=== PATIENT | female | born 1970 | race Caucasian/White ===

== ENCOUNTER 2017-07-14 06:39 | Day surgery (SDC) | payer BC ==
[~2017-07-14 06:39] MED LIST: Lactated Ringers 1,000 ML IV SCH; Scopolamine 1.5 MG Transdermal Patch TOP ONE; Sodium Chloride 0.9% 10 ML Syringe FLUSH PRN; Sodium Chloride 0.9% 2.5 ML Syringe FLUSH PRN; ceFAZolin 2 GM in Premix Bag 1 BAG IV ONE
[2017-07-14] MEDS ORDERED: Midazolam 1 MG/ML 2 ML SDV ONE (07:08)
[2017-07-14] MEDS ORDERED: Propofol 200 MG/20 ML SDV ONE (07:08)
[2017-07-14] MEDS ORDERED: fentaNYL 100 MCG/2 ML SDV ONE (07:08)
[2017-07-14] MEDS ORDERED: Ketorolac 30 MG/ML SDV ONE (07:11)
[2017-07-14] MEDS ORDERED: Neostigmine Methylsulfate 1 MG/ML 5 ML Syringe ONE (07:11)
[2017-07-14] MEDS ORDERED: Ondansetron 4 MG/2 ML SDV ONE (07:11)
[2017-07-14] MEDS ORDERED: Rocuronium 10 MG/ML 10 ML Syringe ONE (07:11)
[2017-07-14] MEDS ORDERED: Lidocaine 2% 5 ML SDV ONE (07:11)
[2017-07-14] MEDS ORDERED: diphenhydrAMINE 50 MG/ML SDV ONE (07:11)
[2017-07-14] MEDS ORDERED: ceFAZolin 1 GM Vial ONE (07:13)
[2017-07-14] MEDS ORDERED: Bupivacaine 0.5% 30 ML SDV ONE (07:20)
--- NOTE | 2017-07-14 07:30 | PCM.PREANE ---
Preanesthetic Assessment - Anesthesia/Transfusion/Family Hx Anesthesia History: Prior Anesthesia Without Reaction Family History of Anesthesia Reaction: No Transfusion History: No Prior Transfusion(s) Intubation History: Unknown - Review of Systems General: No Symptoms Pulmonary: No Symptoms Cardiovascular: No Symptoms Gastrointestinal: No Symptoms Neurological: No Symptoms Other: Reports: None - Physical Assessment NPO Status Date: 07/13/17 NPO Status Time: 21:00 O2 Sat by Pulse Oximetry: 96 Respiratory Rate: 12 Vital Signs: Last Vital Signs Temp 36.7 C 07/14/17 06:45 Pulse 84 07/14/17 06:45 Resp 12 07/14/17 06:45 BP 117/78 07/14/17 06:45 Pulse Ox 96 07/14/17 06:45 Height: 1.75 m Weight: 88.904 kg ASA Class: 1 Mental Status: Alert & Oriented x3 Airway Class: Mallampati = 2 Dentition: Reports: Normal Dentition Thyro-Mental Finger Breadths: 3 Mouth Opening Finger Breadths: 3 ROM/Head Extension: Full Lungs: Clear to Auscultation, Normal Respiratory Effort Cardiovascular: Regular Rate, Regular Rhythm - Allergies Allergies/Adverse Reactions: Allergies Allergy/AdvReac Type Severity Reaction Status Date / Time No Known Allergies Allergy Verified 04/09/16 15:05 - Blood Blood Available: No - Anesthesia Plan Pre-Op Medication Ordered: None - Acknowledgements Anesthesia Type Planned: General Anesthesia Pt an Appropriate Candidate for the Planned Anesthesia: Yes Alternatives and Risks of Anesthesia Discussed w Pt/Guardian: Yes Pt/Guardian Understands and Agrees with Anesthesia Plan: Yes PreAnesthesia Questionnaire HEENT History: Reports: None Cardiovascular History: Reports: Other (See Below) Other Respiratory History: Former smoker smoked a few cigarettes daily for 8 years, QUIT 2 yrs ago Gastrointestinal History: Reports: Cholelithiasis Other Gastrointestinal History: Heartburn on occasion treat with Pepcid Genitourinary History: Reports: None 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 [No Known Home Meds] 07/08/17 [History] - CURRENT (IN HOUSE) MEDS Current Meds: Current Medications Lactated Ringer's (Ringers, Lactated) 1,000 mls @ 125 mls/hr IV ASDIRECTED HUGO Last Admin: 07/14/17 07:09 Dose: 125 mls/hr Sodium Chloride (Saline Flush) 10 ml FLUSH ASDIRECTED PRN PRN Reason: Keep Vein Open Sodium Chloride (Saline Flush) 2.5 ml FLUSH ASDIRECTED PRN PRN Reason: Keep Vein Open Discontinued Medications Bupivacaine HCl (Marcaine 0.5%) Confirm Administered Dose 30 ml .ROUTE .STK-MED ONE Stop: 07/14/17 07:21 Cefazolin Sodium (Ancef) Confirm Administered Dose 2 gm .ROUTE .STK-MED ONE Stop: 07/14/17 07:14 Diphenhydramine HCl (Benadryl) Confirm Administered Dose 50 mg .ROUTE .STK-MED ONE Stop: 07/14/17 07:12 Fentanyl (Sublimaze) Confirm Administered Dose 100 mcg .ROUTE .STK-MED ONE Stop: 07/14/17 07:09 Glycopyrrolate () Confirm Administered Dose 1 mg .ROUTE .STK-MED ONE Stop: 07/14/17 07:12 Cefazolin Sodium/Dextrose 2 gm (/ Premix) 50 mls @ 100 mls/hr IV ONETIME ONE Stop: 07/13/17 10:00 Ketorolac Tromethamine (Toradol) Confirm Administered Dose 30 mg .ROUTE .STK- MED ONE Stop: 07/14/17 07:12 Lidocaine (Xylocaine-Mpf 2%) Confirm Administered Dose 5 ml .ROUTE .STK-MED ONE Stop: 07/14/17 07:12 Midazolam HCl (Versed 1 Mg/Ml) Confirm Administered Dose 2 mg .ROUTE .STK-MED ONE Stop: 07/14/17 07:09 Neostigmine Methylsulfate (Neostigmine) Confirm Administered Dose 5 mg .ROUTE .STK-MED ONE Stop: 07/14/17 07:12 Ondansetron HCl (Zofran) Confirm Administered Dose 4 mg .ROUTE .STK-MED ONE Stop: 07/14/17 07:12 Propofol (Diprivan 20 Ml) Confirm Administered Dose 200 mg .ROUTE .STK-MED ONE Stop: 07/14/17 07:09 Rocuronium Brogue (Zemuron) Confirm Administered Dose 100 mg .ROUTE .STK-MED ONE Stop: 07/14/17 07:12 Scopolamine (Transderm-Scop) 1.5 mg TOP ONETIME ONE Stop: 07/14/17 06:31 Last Admin: 07/14/17 07:09 Dose: 1.5 mg
[2017-07-14] MEDS ORDERED: fentaNYL 100 MCG/2 ML SDV IVPUSH PRN (07:37)
[2017-07-14] MEDS ORDERED: HYDROmorphone 2 MG/ML Syringe ONE (08:03)
[2017-07-14] MEDS ORDERED: Phenylephrine/Normal Saline 100 MCG/ML 10 ML Syringe ONE (08:15)
[2017-07-14] MEDS ORDERED: ePHEDrine 50 MG/ML SDV ONE (08:25)
[2017-07-14] MEDS ORDERED: Mineral Oil/Petrolatum Ophth Oint 3.5 GM Tube ONE (08:26)
[2017-07-14] MEDS ORDERED: Acetaminophen/oxyCODONE 325-5 MG Tab PO PRN (10:39)
[2017-07-14] MEDS ORDERED: Cyclobenzaprine 10 MG Tab PO PRN (10:39)
--- NOTE | 2017-07-14 10:43 | PCM.OPNOTE ---
- General Post-Op/Procedure Note Date of Surgery/Procedure: 07/14/17 Operative Procedure(s): Laparoscopic cholecystectomy, umbilical hernia repair, lysis of adhesions Findings: Intradbominal adhesions around RUQ, chronically inflamed gallbladder with adhesions around the cystic duct and artery, 3mm supraumbilical hernia Pre Op Diagnosis: Umbilical hernia, symptomatic cholelithiasis Post-Op Diagnosis: same, intrabdominal adhesions Anesthesia Technique: General ET Tube Primary Surgeon: Ruth Ann Vargas Output, Urine Amount: 75 EBL in mLs: 30 Condition: Good Free Text/Narrative:: Intake & Output 07/13/17 07/14/17 07/14/17 22:59 06:59 14:59 Output Total 75 Balance -75
--- NOTE | 2017-07-14 11:09 | PCM.POSTAN ---
POST ANESTHESIA ASSESSMENT - MENTAL STATUS Mental Status: Alert, Oriented - RESPIRATORY Respiratory Status: Respiratory Rate WNL - CARDIOVASCULAR CV Status: Pulse Rate WNL, Blood Pressure Stable - GASTROINTESTINAL GI Status: No Symptoms - PAIN Pain Score: 4 - POST OP HYDRATION Hydration Status: Adequate & Stable - OBSERVATIONS Free Text/Narrative:: no anesthesia problems
--- NOTE | 2017-07-14 12:57 | OR ---
SURGEON: MEHRAN DENNEY MD DATE OF PROCEDURE: 07/14/2017 PREOPERATIVE DIAGNOSES: Symptomatic cholelithiasis, umbilical hernia. POSTOPERATIVE DIAGNOSES: Symptomatic cholelithiasis, chronic cholecystitis, supraumbilical hernia, intraabdominal adhesions. PROCEDURES PERFORMED: 1. Umbilical hernia repair. 2. Laparoscopic cholecystectomy. 3. Lysis of adhesions. ANESTHESIA: General endotracheal anesthesia. FLUIDS: See anesthesia record. ESTIMATED BLOOD LOSS: 30 mL. URINE OUTPUT: 75 mL. FINDINGS: Intraabdominal adhesions in the right upper quadrant, chronically inflamed gallbladder with multiple adhesions around the infundibulum, cystic duct, and cystic artery. A 3 mm supraumbilical hernia. COMPLICATIONS: None. INDICATIONS: The patient is a 46-year-old female, who presented to clinic with symptomatic cholelithiasis. On physical exam, she also had a small supraumbilical hernia. Decision was made to proceed with removal of the gallbladder as well as repair of the umbilical hernia at the same time. We discussed both procedures including expected perioperative course. We discussed the risks, including bleeding, infection, or damage to surrounding structures. The patient verbalized understanding and wishes to proceed. PROCEDURE IN DETAIL: The patient was brought into the OR and placed on the OR table in supine position. A time-out was completed verifying the patient's name, age, date of , allergies, and procedure to be performed. General endotracheal anesthesia was induced. The patient's left arm was tucked at her side and Rockwell catheter was placed. The abdomen was prepped and draped in the usual sterile fashion. I anesthetized the supraumbilical fold with 0.5% Marcaine plain. A #15 blade was used to make a curvilinear incision along the supraumbilical fold. Cautery was used to dissect down to the level of subcutaneous fat. I immediately encountered a 1 cm piece of the preperitoneal fat consistent with her umbilical hernia. Using a Metzenbaum scissors, I dissected this down to the level of the fascia. Given this preperitoneal fat, I transected using cautery at its base. This allowed me to visualize the fascial defect. The fascial defect measured approximately 3 mm in size. I grabbed the side of the defect with Juve's and elevated it. In order to place my trocar through this area I used the scissors to enlarge the defect. The preperitoneal tissue was then grasped with a Grazyna, elevated and cut with the Metzenbaum scissors. Entry into the abdomen was obtained and 0 Vicryl sutures were placed on either side of the fascia to allow me to secure my found trocar in place. A 12-mm Luz trocar was placed through the defect and the abdomen insufflated. A 5 mm 30-degree scope was then inserted in the abdomen and I inspected the area underneath my initial trocar placement. There was no damage noted to any surrounding tissues. The patient was then placed into reverse Trendelenburg position and airplaned slightly to the left. The patient had multiple intraabdominal adhesions along the right upper quadrant. I placed a 5 mm trocar under direct visualization in the epigastric area. Through this trocar I was able to pass hook cautery into the abdomen and take down the intraabdominal adhesions along the abdominal wall. This cleared up the area enough that I could safely place my 2 other trocars. My 5 mm trocars were placed, one in the right flank, and one along the right subcostal margin along the midclavicular line. The dome of the gallbladder was grasped and elevated above the liver. I identified the infundibulum and retracted it to the right and inferior with an atraumatic grasper through my midclavicular port. The area had multiple adhesions to the duodenum and surrounding omentum. Using a [place] dissector and a suction device I used a Kittner, I was able to take the majority of these adhesions down. I then meticulously dissected out the cystic duct and artery. This was somewhat difficult given the amount of inflammation and adhesions that were around the area. I dissected 1/[address] up the gallbladder fossa to ensure that I had correctly identified my cystic duct and artery. I attempted to place a 5 mm clip across the cystic duct, but was unable to do so. I up sized my epigastric port to a 10 mm trocar and passed the 10 mm stapling device through this new port. Using the 10 mm stapling device, I was able to safely doubly clip and ligate the cystic duct. A single lumen was noted upon clipping this area. Clips were then applied to the cystic artery using a 5 mm clip executive receptionist. I ligated the artery and no overt bleeding was noted and the clips were secured. Electrocautery was then used to dissect the gallbladder off the gallbladder fossa. Once the gallbladder was free of the liver, it was placed in an EndoCatch bag and removed through the epigastric port site. While manipulating the gallbladder off the gallbladder fossa, the clip that was on the cystic duct came of and some bile was spilled into the abdomen. I replaced the 10 mm port through the epigastric site and copiously irrigated the abdomen with 3 L of normal saline until it ran clear. I then inspected my surgical site and it appeared hemostatic with no evidence of any leakage of bile. The 10 mm port was then closed using a Roddy-Isabell device and an 0 Vicryl suture. The remainder of the ports were removed under direct visualization. The abdomen allowed to desufflate. I closed the fascia at the umbilical port site with interrupted 0 Ethibond sutures and tied down my anchoring 0 Vicryl sutures over the top of this closure. The umbilical port site was closed with interrupted 3- 0 Vicryl in the subcutaneous fat and the skin was closed with a running 4-0 Monocryl suture. Two 5 mm port sites were closed with an interrupted 4-0 Monocryl sutures. The 10 mm port site was closed with a running 4-0 Monocryl suture in the subcuticular space. Steri-Strips and sterile dressings were applied. The patient was transferred to the PACU in stable condition. GIOVANNI PEREIRA /[id number]
[2017-07-14 13:00] VITALS: BP 136/79
== END 2017-07-14 12:30 | disposition home or self-care (01) ==
LOC: MW.SDS 06:39
PROVIDERS: ATTEND Surgery
DX: K80.10 Calculus of gallbladder with chronic cholecystitis without obstruction (principal); K42.9 Umbilical hernia without obstruction or gangrene; Z87.891 Personal history of nicotine dependence
CPT/HCPCS: 47562; 49585; A9270; J0690; J1170; J1200; J1885; J2250; J2405; J3010; J7120; 00790; 88302; 88304; J2704

== ENCOUNTER 2018-11-19 18:40 | Emergency (ER) | payer BC ==
--- NOTE | 2018-11-19 19:09 | EDM.PDOC ---
ED HPI GENERAL MEDICAL PROBLEM - General Chief Complaint: Respiratory Problem Stated Complaint: CHEST COLD Time Seen by Provider: 11/19/18 19:03 - History of Present Illness INITIAL COMMENTS - FREE TEXT/NARRATIVE: HISTORY AND PHYSICAL: History of present illness: The patient is a 48-year-old female who has no pre-existing pulmonary issues but did have pneumonia in April that was treated as an outpatient and follows with Dr. Antonio Steele in the clinic, who presents with 3 days of cough productive of phlegm generalized body aches or throat and runny nose. She's had no fevers or vomiting or diarrhea no abdominal complaints and no shortness of breath. She says the cough is not dryer tacky but it is productive of phlegm and she is not sure if she is coughing up phlegm from her nose and throat orbits coming from her lungs and she is concerned she has pneumonia again. The patient did not get her influenza shot this year. The patient has not tried anything over-the- counter specifically for cough and chest congestion and has only taken ibuprofen The patient has a history of smoking several cigarettes a day but less than a half a pack but she quit approximately 2-3 years ago. She has never had any diagnosed lung issues. Review of systems: As per history of present illness and below otherwise all systems reviewed and negative. Past medical history: As per history of present illness and as reviewed below otherwise noncontributory. Surgical history: As per history of present illness and as reviewed below otherwise noncontributory. Social history: No reported history of drug or alcohol abuse. Family history: As per history of present illness and as reviewed below otherwise noncontributory. Physical exam: General: Well-developed well-nourished female who is speaking clearly and easily in the ED without breathlessness or nasal quality to voice. Vital signs were noted by me HEENT: Atraumatic, normocephalic, pupils reactive, negative for conjunctival pallor or scleral icterus, mucous membranes moist, throat clear of exudates and there is some erythema, neck supple, nontender, trachea midline. Lungs: Clear to auscultation with some coarse breath sounds at the bases left greater than right, no wheezing or stridor, no work of breathing, breath sounds equal bilaterally, chest nontender. Heart: S1S2, regular rate and rhythm no overt murmurs Abdomen: Soft, nondistended, nontender. NABS Negative for costovertebral tenderness. Pelvis: Deferred Genitourinary: Deferred. Rectal: Deferred. Extremities: Atraumatic, negative for cords or calf pain. Neurovascular unremarkable. No pedal edema Neuro: Awake, alert, oriented. Cranial nerves II through XII unremarkable. Cerebellum unremarkable. Motor and sensory unremarkable throughout. Exam nonfocal. Diagnostics: Chest x-ray, influenza swab rapid strep Therapeutics: Rocephin IM After discussing today's chest x-ray findings the patient shows me a picture of her chest x-ray in April and the pneumonia is in the same location. I will give her a dose of Rocephin here and antibiotics for home but have cautioned her that she needs very strict follow-up with her provider in the clinic either Dr. Hart or her new provider Dr. Shirley as this is curious that this would be a recurrent pneumonia in 7 months in an otherwise healthy person. She is aware of my concerns and understands and will make the phone call. She is aware that I did not do labs or any further workup here at this point because we are limited in our resources to work the true etiology of this up and because she is nontoxic without fevers and now hypoxia. She states understanding Impression: Right perihilar pneumonia Definitive disposition and diagnosis as appropriate pending reevaluation and review of above. - Related Data Allergies Allergy/AdvReac Type Severity Reaction Status Date / Time No Known Allergies Allergy Verified 11/19/18 18:59 Home Meds: Home Meds . 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 History: Menorrhagia Musculoskeletal History: Reports: Fracture Other Musculoskeletal History: ORIF Left Ankle Neurological History: Reports: None Psychiatric History: Reports: None Endocrine/Metabolic History: Reports: Other (See Below) Hematologic History: Reports: None - Past Surgical History GI Surgical History: Reports: Appendectomy Female Surgical History: Reports: Hysterectomy, LEEP Musculoskeletal Surgical History: Reports: ORIF, Other (See Below) Other Musculoskeletal Surgeries/Procedures:: ankle sx - History Comment History Comment: etoh "1x a week" Social & Family History - Family History Family Medical History: Noncontributory Oncologic: Reports: Cervix - Tobacco Use Smoking Status *Q: Never Smoker - Recreational Drug Use Recreational Drug Use: No ED ROS GENERAL - Review of Systems Review Of Systems: ROS reveals no pertinent complaints other than HPI. ED EXAM, GENERAL - Physical Exam Exam: See Below (See dictation) Course - Vital Signs Last Recorded V/S: Last Vital Signs Temp 35.8 C 11/19/18 18:50 Pulse 100 11/19/18 18:50 Resp 18 11/19/18 18:50 BP 108/71 11/19/18 18:50 Pulse Ox 95 11/19/18 18:50 - Orders/Labs/Meds Orders: Active Orders 24 hr Category Date Time Status CULTURE STREP A CONFIRMATION [] Stat Lab 11/19/18 19:10 Results STREP SCRN A RAPID W CULT CONF [] Stat Lab 11/19/18 19:10 Results cefTRIAXone [Rocephin] 1 gm Med 11/19/18 20:19 Ordered Lidocaine 1% [Xylocaine-MPF 1%] 4 ml IM ONETIME Departure - Departure Time of Disposition: 20:21 Disposition: Home, Self-Care 01 Condition: Good Clinical Impression: Pneumonia involving right lung Qualifiers: Pneumonia type: due to unspecified organism Lung location: unspecified part of lung Qualified Code(s): J18.9 - Pneumonia, unspecified organism - Discharge Information Referrals: Oz Hart MD [Primary Care Provider] - Forms: ED Department Discharge Additional Instructions: The following information is given to patients seen in the emergency department who are being discharged to home. This information is to outline your options for follow-up care. We provide all patients seen in our emergency department with a follow-up referral. The need for follow-up, as well as the timing and circumstances, are variable depending upon the specifics of your emergency department visit. If you don't have a primary care physician on staff, we will provide you with a referral. We always advise you to contact your personal physician following an emergency department visit to inform them of the circumstance of the visit and for follow-up with them and/or the need for any referrals to a consulting specialist. The emergency department will also refer you to a specialist when appropriate. This referral assures that you have the opportunity for followup care with a specialist. All of these measure are taken in an effort to provide you with optimal care, which includes your followup. Under all circumstances we always encourage you to contact your private physician who remains a resource for coordinating your care. When calling for followup care, please make the office aware that this follow-up is from your recent emergency room visit. If for any reason you are refused follow-up, please contact the [facility] emergency department at and ask to speak to the emergency department charge nurse. [address] [place] [address] Please contact her providers in the clinic, Dr. Hart or Dr. Shirley, on Wednesday morning to schedule follow-up and take all medications as prescribed. You may use [id number] Mucinex for mucus production and any cough medicine you choose. Push hydration and rest. Return to ER as needed and as discussed. Please take your antibiotics as prescribed until finished. You have been given doses of your antibiotics here and please fill your prescription tomorrow when the pharmacy opens up at 12 noon - My Orders Last 24 Hours: My Active Orders 11/19/18 19:10 CULTURE STREP A CONFIRMATION [RM] Stat STREP SCRN A RAPID W CULT CONF [RM] Stat 11/19/18 20:19 cefTRIAXone [Rocephin] 1 gm Lidocaine 1% [Xylocaine-MPF 1%] 4 ml IM ONETIME - Assessment/Plan Last 24 Hours: My Active Orders 11/19/18 19:10 CULTURE STREP A CONFIRMATION [RM] Stat STREP SCRN A RAPID W CULT CONF [RM] Stat 11/19/18 20:19 cefTRIAXone [Rocephin] 1 gm Lidocaine 1% [Xylocaine-MPF 1%] 4 ml IM ONETIME
--- NOTE | 2018-11-19 20:12 | CR ---
Indication: Cough and shortness of breath. Chest pain. Technique: Chest 2 views Comparison: None Findings: Cardiovascular and mediastinum: Heart size and vasculature are normal in caliber and appearance. Lungs and pleural spaces: Relatively large ill-defined infiltrate is in the right hilar region. Remainder of the lungs and pleural spaces are clear. Bones and soft tissues: No significant findings. Impression: Right perihilar pneumonia. Dictated by Pj Talley MD @ Nov 19 2018 8:08PM Signed by Dr. Pj Talley @ Nov 19 2018 8:10PM
[2018-11-19] MEDS ORDERED: cefTRIAXone 1 GM in Lidocaine 1% 4 ML IM ONE (20:19)
[2018-11-19] MEDS ORDERED: Levofloxacin 500 MG Tab PO ONE (20:22)
[2018-11-19 20:48] VITALS: BP 109/68
== END 2018-11-19 20:48 | disposition home or self-care (01) ==
LOC: MW.ED 18:40
DX: J18.9 Pneumonia, unspecified organism (principal); Z87.891 Personal history of nicotine dependence
CPT/HCPCS: 71046; 87081; 87804; 87880; 96372; 99285; A9270; J0696; J2001; 99283

== ENCOUNTER 2020-11-09 07:24 | Emergency (ER) | payer BC ==
[2020-11-09] MEDS ORDERED: Sodium Chloride 0.9% 10 ML Syringe FLUSH PRN (07:38)
[2020-11-09] MEDS ORDERED: Sodium Chloride 0.9% 2.5 ML Syringe FLUSH PRN (07:38)
[2020-11-09] MEDS ORDERED: Albuterol 6.7 GM Inhaler INH ONE (07:39)
--- NOTE | 2020-11-09 07:44 | EDM.PDOC ---
ED HPI GENERAL MEDICAL PROBLEM - General Chief Complaint: Respiratory Problem Stated Complaint: PNEUMONIA SYMPTOMS, FEVER Time Seen by Provider: 11/09/20 07:29 - History of Present Illness INITIAL COMMENTS - FREE TEXT/NARRATIVE: 50-year-old female with no significant past history presenting with cough and posttussive emesis. Patient states that for most of the last month she has not felt quite herself. She is had a number of periods which she describes as cold- like symptoms. Week ago she went to [place]. She developed a significant cough shortness of breath and profound fatigue this was associated with some emesis particularly posttussive emesis. She had a negative Covid test in [place] a couple days ago. She denies any exposure to water or street food. No abdominal pain. Patient took a few puffs of her albuterol inhaler while in [place] and had some emesis following this but did feel like it improved her breathing. She also notes a fever of 102 earlier this morning for which she took ibuprofen. She is a non-smoker without any prior history of asthma. chest Pain Score (Numeric/FACES): 7 bodyaches Pain Score (Numeric/FACES): 7 - Related Data Allergies Allergy/AdvReac Type Severity Reaction Status Date / Time No Known Allergies Allergy Verified 11/09/20 07:43 Home Meds: Home Meds . [No Known Home Meds] 11/19/18 [History] Past Medical History - Past Health History Medical/Surgical History: Denies Medical/Surgical History HEENT History: Reports: None Cardiovascular History: Reports: Other (See Below) Other Respiratory History: Former smoker smoked a few cigarettes daily for 8 years, QUIT 2 yrs ago Gastrointestinal History: Reports: Cholelithiasis Other Gastrointestinal History: Heartburn on occasion treat with Pepcid Genitourinary History: Reports: None [employer] History: Reports: Prolapsed Uterus, Other (See Below) Other [employer] History: Menorrhagia Musculoskeletal History: Reports: Fracture Other Musculoskeletal History: ORIF Left Ankle Neurological History: Reports: None Psychiatric History: Reports: None Endocrine/Metabolic History: Reports: Other (See Below) Hematologic History: Reports: None - Past Surgical History GI Surgical History: Reports: Appendectomy Female Surgical History: Reports: Hysterectomy, LEEP Musculoskeletal Surgical History: Reports: ORIF, Other (See Below) Other Musculoskeletal Surgeries/Procedures:: ankle sx - History Comment History Comment: etoh "1x a week" Social & Family History - Family History Family Medical History: No Pertinent Family History Oncologic: Reports: Cervix ED ROS GENERAL - Review of Systems Review Of Systems: See Below Free Text/Narrative/Comment: General: No fever. Skin: No rash. Eyes: No vision problems. ENT: No sore throat. Neck: No neck stiffness. Respiratory: Per HPI Cardiac: Mild chest tightness Gastrointestinal: Per HPI Urinary: No dysuria. Musculoskeletal: No myalgias/arthralgias. Neurologic: No headache. ED EXAM, GENERAL - Physical Exam Exam: See Below Free Text/Narrative:: General Appearance: No acute distress, appears comfortable Skin: No rash HEENT: Normocephalic/atraumatic, sclera anicteric, mucous membranes dry Neck: Normal range of motion Chest and Lungs: Diffuse end expiratory wheezing, breathing comfortably at rest no increased work of breathing Cardiovascular: Regular rate and rhythm, no murmur Abdomen: Soft, non-tender Back: Normal Musculoskeletal: No edema or tenderness Neurologic: Awake, alert, no obvious deficits, moving all extremities Psychiatric: Appropriate, cooperative Course - Vital Signs Last Recorded V/S: Last Vital Signs Temp 97.6 F 11/09/20 07:28 Pulse 81 11/09/20 09:00 Resp 17 11/09/20 09:00 BP 104/61 11/09/20 09:00 Pulse Ox 95 11/09/20 09:00 - Orders/Labs/Meds Orders: Active Orders 24 hr Category Date Time Status RT Post Treatment Assessment [RC] Click to Edit Care 11/09/20 07:40 Active RT Pre-Treatment Assessment [RC] Click to Edit Care 11/09/20 07:40 Active Lactated Ringers [Ringers, Lactated] 1,000 ml Med 11/09/20 07:45 Active IV .BOLUS Sodium Chloride 0.9% [Saline Flush] Med 11/09/20 07:38 Active 10 ml FLUSH ASDIRECTED PRN Sodium Chloride 0.9% [Saline Flush] Med 11/09/20 07:38 Active 2.5 ml FLUSH ASDIRECTED PRN Saline Lock Insert [OM.PC] Stat Oth 11/09/20 07:38 Ordered Medication Orders Lactated Ringer's (Ringers, Lactated) 1,000 mls @ 999 mls/hr IV .BOLUS HUGO Last Admin: 11/09/20 08:06 Dose: 999 mls/hr Documented by: DARCI Sodium Chloride (Sodium Chloride 0.9% 10 Ml Syringe) 10 ml FLUSH ASDIRECTED PRN PRN Reason: Keep Vein Open Last Admin: 11/09/20 08:08 Dose: 10 ml Documented by: DARCI Sodium Chloride (Sodium Chloride 0.9% 2.5 Ml Syringe) 2.5 ml FLUSH ASDIRECTED PRN PRN Reason: Keep Vein Open Last Admin: 11/09/20 08:08 Dose: 2.5 ml Documented by: DARCI Labs: Laboratory Tests 11/09/20 11/09/20 11/09/20 Range/Units 07:50 07:50 08:23 WBC 5.52 (4.0-11.0) K/uL RBC 4.68 (4.30-5.90) M/uL Hgb 14.6 (12.0-16.0) g/dL Hct 42.6 (36.0-46.0) % MCV 91.0 (80.0-98.0) fL MCH 31.2 (27.0-32.0) pg MCHC 34.3 (31.0-37.0) g/dL RDW Std Deviation 43.0 (28.0-62.0) fl RDW Coeff of Srinivas 13 (11.0-15.0) % Plt Count 222 (150-400) K/uL MPV 9.40 (7.40-12.00) fL Neut % (Auto) 78.8 (48.0-80.0) % Lymph % (Auto) 15.4 L (16.0-40.0) % [place] % (Auto) 5.6 (0.0-15.0) % Eos % (Auto) 0.0 (0.0-7.0) % Baso % (Auto) 0.2 (0.0-1.5) % Neut # (Auto) 4.4 (1.4-5.7) K/uL Lymph # (Auto) 0.9 (0.6-2.4) K/uL [place] # (Auto) 0.3 (0.0-0.8) K/uL Eos # (Auto) 0.0 (0.0-0.7) K/uL Baso # (Auto) 0.0 (0.0-0.1) K/uL Nucleated RBC % 0.0 /100WBC Nucleated RBCs # 0 K/uL Sodium 135 L (136-145) mmol/L Potassium 3.9 (3.5-5.1) mmol/L Chloride 101 (98-107) mmol/L Carbon Dioxide 24.1 (21.0-32.0) mmol/L BUN 9 (7.0-18.0) mg/dL Creatinine 0.9 (0.6-1.0) mg/dL Est Cr Clr Drug Dosing 76.42 mL/min Estimated GFR (MDRD) > 60.0 ml/min Glucose 107 H (74-106) mg/dL Calcium 8.3 L (8.5-10.1) mg/dL Total Bilirubin 0.4 (0.2-1.0) mg/dL AST 26 (15-37) IU/L ALT 31 (14-63) IU/L Alkaline Phosphatase 63 (46-116) U/L Total Protein 6.7 (6.4-8.2) g/dL Albumin 3.0 L (3.4-5.0) g/dL Globulin 3.7 (2.6-4.0) g/dL Albumin/Globulin Ratio 0.8 L (0.9-1.6) Influenza Type A RNA NEGATIVE (NEGATIVE) Influenza Type B RNA NEGATIVE (NEGATIVE) SARS-CoV-2 RNA (GAY) POSITIVE H (NEGATIVE) Meds: Medications Generic Name Dose Route Start Last Admin Trade Name Freq PRN Reason Stop Dose Admin Lactated Ringer's 1,000 mls @ 999 mls/hr 11/09/20 07:45 11/09/20 08:06 Ringers, Lactated IV 999 mls/hr .BOLUS HUGO Administration Sodium Chloride 10 ml 11/09/20 07:38 11/09/20 08:08 Sodium Chloride 0.9% 10 Ml Syringe FLUSH 10 ml ASDIRECTED PRN Administration Keep Vein Open Sodium Chloride 2.5 ml 11/09/20 07:38 11/09/20 08:08 Sodium Chloride 0.9% 2.5 Ml Syringe FLUSH 2.5 ml ASDIRECTED PRN Administration Keep Vein Open Discontinued Medications Generic Name Dose Route Start Last Admin Trade Name Freq PRN Reason Stop Dose Admin Albuterol 0 gm 11/09/20 07:39 11/09/20 08:07 Albuterol 6.7 Gm Inhaler INH 11/09/20 07:40 Not Given ONETIME ONE Albuterol Confirm 11/09/20 08:02 11/09/20 08:06 Albuterol 8 Gm Inhaler Administered 11/09/20 08:03 2 puff Dose Administration 8 gm INH .STK-MED ONE Departure - Departure Time of Disposition: 09:23 Disposition: Home, Self-Care 01 Condition: Fair Clinical Impression: COVID-19 - Discharge Information *PRESCRIPTION DRUG MONITORING PROGRAM REVIEWED*: Not Applicable *COPY OF PRESCRIPTION DRUG MONITORING REPORT IN PATIENT LIUS: Not Applicable Instructions: 10 Things You Can Do to Manage Your COVID-19 Symptoms at Home - CDC, COVID-19 Frequently Asked Questions Referrals: Sil Shirley DO [Primary Care Provider] - Forms: ED Department Discharge, ED Department Discharge Additional Instructions: The following information is given to patients seen in the emergency department who are being discharged to home. This information is to outline your options for follow-up care. We provide all patients seen in our emergency department with a follow-up referral. The need for follow-up, as well as the timing and circumstances, are variable depending upon the specifics of your emergency department visit. If you don't have a primary care physician on staff, we will provide you with a referral. We always advise you to contact your personal physician following an emergency department visit to inform them of the circumstance of the visit and for follow-up with them and/or the need for any referrals to a consulting specialist. The emergency department will also refer you to a specialist when appropriate. This referral assures that you have the opportunity for follow-up care with a specialist. All of these measure are taken in an effort to provide you with optimal care, which includes your follow-up. Under all circumstances we always encourage you to contact your private physician who remains a resource for coordinating your care. When calling for follow-up care, please make the office aware that this follow-up is from your recent emergency room visit. If for any reason you are refused follow-up, please contact the [facility] Emergency Department at and asked to speak to the emergency department charge nurse. Sepsis Event Note (ED) - Focused Exam Vital Signs: Vital Signs Temp Pulse Resp BP Pulse Ox 11/09/20 09:00 81 17 104/61 95 11/09/20 08:30 89 17 99/75 95 11/09/20 07:28 97.6 F 109 H 18 112/65 93 L - My Orders Last 24 Hours: My Active Orders 11/09/20 07:38 Sodium Chloride 0.9% [Saline Flush] 10 ml FLUSH ASDIRECTED PRN Sodium Chloride 0.9% [Saline Flush] 2.5 ml FLUSH ASDIRECTED PRN Saline Lock Insert [OM.PC] Stat 11/09/20 07:40 RT Post Treatment Assessment [RC] Click to Edit RT Pre-Treatment Assessment [RC] Click to Edit 11/09/20 07:45 Lactated Ringers [Ringers, Lactated] 1,000 ml IV .BOLUS - Assessment/Plan Last 24 Hours: My Active Orders 11/09/20 07:38 Sodium Chloride 0.9% [Saline Flush] 10 ml FLUSH ASDIRECTED PRN Sodium Chloride 0.9% [Saline Flush] 2.5 ml FLUSH ASDIRECTED PRN Saline Lock Insert [OM.PC] Stat 11/09/20 07:40 RT Post Treatment Assessment [RC] Click to Edit RT Pre-Treatment Assessment [RC] Click to Edit 11/09/20 07:45 Lactated Ringers [Ringers, Lactated] 1,000 ml IV .BOLUS Assessment:: 50-year-old female presenting with signs and symptoms most consistent with a viral bronchitis versus pneumonia. Covid considered as well patient has some mild tachycardia and some mild relative approximate greater than 90. Given the high fever no concern for primary cardiac process. Albuterol inhaler ordered for symptoms labs chest x-ray. Chest x-ray shows a right-sided pneumonia. Labs are normal white blood cell count patient is back Covid positive which explains her symptoms. Patient had minimal improvement from the inhaler. Her work breathing remains normal her oxygen remains in the low 90s. Patient does not qualify for antibody infusion she is without any other medical problems. Return precautions discussed and understood. No indication for addition of this point.
[2020-11-09] MEDS ORDERED: Lactated Ringers 1,000 ML IV SCH (07:45)
[2020-11-09] MEDS ORDERED: Albuterol 8 GM Inhaler INH ONE (08:02)
[2020-11-09 08:21] LABS: BLOOD UREA NITROGEN,BUN 9 mg/dL (7.0-18.0); CARBON DIOXIDE,CO2 24.1 mmol/L (21.0-32.0); CHLORIDE,CL 101 mmol/L (98-107); GLUCOSE RANDOM 107 mg/dL (74-106); POTASSIUM,K 3.9 mmol/L (3.5-5.1); SODIUM,NA 135 mmol/L (136-145)
--- NOTE | 2020-11-09 08:42 | CR ---
INDICATION: Cough, fever. Just got back from [facility]. TECHNIQUE: Chest 1 view. COMPARISON: Chest radiograph 11/19/2018. FINDINGS: Patchy opacities in the right mid to lower lung suspicious for pneumonia. This is similar in appearance to the prior exam. No pleural effusion or pneumothorax. Normal heart size and pulmonary vascularity. Surgical clips projected over the right lower lung medially likely within the chest wall. The bones are unremarkable. IMPRESSION: Patchy opacities in the right mid to lower lung suspicious for pneumonia. Dictated by Yajaira Uriostegui MD @ 11/09/2020 8:41:[address] Yajaira Uriostegui @ Nov 09 2020 8:41AM
[2020-11-09 09:09] LABS: CORONAVIRUS COVID-19 NAA POSITIVE (NEGATIVE); INFLUENZA A NAA NEGATIVE (NEGATIVE); INFLUENZA B NAA NEGATIVE (NEGATIVE)
[2020-11-09 09:38] VITALS: BP 108/68; PULSE 90
== END 2020-11-09 09:34 | disposition home or self-care (01) ==
LOC: MW.ED 07:24
DX: U07.1 COVID-19 (principal); Z87.891 Personal history of nicotine dependence
CPT/HCPCS: 0240U; 36415; 71045; 80053; 85025; 99285; A9270; J7120

== ENCOUNTER 2020-11-16 07:30 | Emergency (ER) | payer BC ==
[2020-11-16] MEDS ORDERED: Dexamethasone 10 MG/ML SDV IM ONE (08:11)
[2020-11-16] MEDS ORDERED: Dexamethasone 10 MG/ML SDV IVPUSH ONE (08:20)
--- NOTE | 2020-11-16 08:36 | EDM.PDOC ---
ED HPI GENERAL MEDICAL PROBLEM - General Chief Complaint: Respiratory Problem Stated Complaint: CHEST PROBLEM Time Seen by Provider: 11/16/20 07:47 Source of Information: Reports: Patient History Limitations: Reports: No Limitations - History of Present Illness INITIAL COMMENTS - FREE TEXT/NARRATIVE: Patient is a 50-year-old female who tested positive for Covid last week. Patient states her symptoms overall have been improving however she notes still has some wheezing and occasionally gets tired when she enters her self. Patient also has a dry nonproductive cough does not improve. Patient otherwise is tolerating p.o. has no fevers chills chest pain no other complaints. - Related Data Allergies Allergy/AdvReac Type Severity Reaction Status Date / Time No Known Allergies Allergy Verified 11/16/20 08:35 Home Meds: Home Meds . [No Known Home Meds] 11/19/18 [History] Past Medical History - Past Health History Medical/Surgical History: Denies Medical/Surgical History HEENT History: Reports: None Cardiovascular History: Reports: Other (See Below) Other Respiratory History: Covid-19 Gastrointestinal History: Reports: Cholelithiasis Other Gastrointestinal History: Heartburn on occasion treat with Pepcid Genitourinary History: Reports: None LOGISTICS SUPPORT History: Reports: Prolapsed Uterus, Other (See Below) Other LOGISTICS SUPPORT History: Menorrhagia Musculoskeletal History: Reports: Fracture Other Musculoskeletal History: ORIF Left Ankle Neurological History: Reports: None Psychiatric History: Reports: None Endocrine/Metabolic History: Reports: Other (See Below) Hematologic History: Reports: None - Past Surgical History Head Surgeries/Procedures: Reports: None HEENT Surgical History: Reports: Oral Surgery Respiratory Surgical History: Reports: None GI Surgical History: Reports: Appendectomy Female Surgical History: Reports: Hysterectomy, LEEP Endocrine Surgical History: Reports: None Musculoskeletal Surgical History: Reports: ORIF, Other (See Below) Other Musculoskeletal Surgeries/Procedures:: ankle sx - History Comment History Comment: etoh "1x a week" Social & Family History - Family History Family Medical History: No Pertinent Family History Oncologic: Reports: Cervix - Tobacco Use Tobacco Use Status *Q: Former Tobacco User Used Tobacco, but Quit: Yes Month/Year Tobacco Last Used: "few years ago" - Caffeine Use Caffeine Use: Reports: Coffee - Recreational Drug Use Recreational Drug Use: No ED ROS GENERAL - Review of Systems Review Of Systems: See Below Constitutional: Reports: No Symptoms HEENT: Reports: No Symptoms Respiratory: Reports: Wheezing Cardiovascular: Reports: No Symptoms Endocrine: Reports: No Symptoms GI/Abdominal: Reports: No Symptoms : Reports: No Symptoms Musculoskeletal: Reports: No Symptoms Skin: Reports: No Symptoms Neurological: Reports: No Symptoms Psychiatric: Reports: No Symptoms Hematologic/Lymphatic: Reports: No Symptoms Immunologic: Reports: No Symptoms ED EXAM, GENERAL - Physical Exam Exam: See Below Exam Limited By: No Limitations General Appearance: Alert, WD/WN, No Apparent Distress Eye Exam: Bilateral Eye: EOMI, PERRL Respiratory/Chest: No Respiratory Distress, Lungs Clear, Normal Breath Sounds Cardiovascular: Normal Peripheral Pulses, Regular Rate, Rhythm GI/Abdominal: Normal Bowel Sounds Neurological: Alert, Oriented Course - Vital Signs Last Recorded V/S: Last Vital Signs Temp 97.2 F 11/16/20 07:40 Pulse 101 H 11/16/20 07:40 Resp 20 11/16/20 07:40 BP 130/93 H 11/16/20 07:40 Pulse Ox 96 11/16/20 07:40 - Orders/Labs/Meds Labs: Laboratory Tests 11/16/20 11/16/20 11/16/20 Range/Units 08:28 08:28 08:28 WBC 6.34 (4.0-11.0) K/uL RBC 3.99 L (4.30-5.90) M/uL Hgb 12.3 (12.0-16.0) g/dL Hct 36.9 (36.0-46.0) % MCV 92.5 (80.0-98.0) fL MCH 30.8 (27.0-32.0) pg MCHC 33.3 (31.0-37.0) g/dL RDW Std Deviation 43.4 (28.0-62.0) fl RDW Coeff of Srinivas 13 (11.0-15.0) % Plt Count 414 H (150-400) K/uL MPV 9.10 (7.40-12.00) fL Neut % (Auto) 53.2 (48.0-80.0) % Lymph % (Auto) 33.0 (16.0-40.0) % [place] % (Auto) 9.1 (0.0-15.0) % Eos % (Auto) 4.1 (0.0-7.0) % Baso % (Auto) 0.6 (0.0-1.5) % Neut # (Auto) 3.4 (1.4-5.7) K/uL Lymph # (Auto) 2.1 (0.6-2.4) K/uL [place] # (Auto) 0.6 (0.0-0.8) K/uL Eos # (Auto) 0.3 (0.0-0.7) K/uL Baso # (Auto) 0.0 (0.0-0.1) K/uL Nucleated RBC % 0.0 /100WBC Nucleated RBCs # 0 K/uL D-Dimer, Quantitative 0.71 H (0.0-0.50) mg/L FEU Sodium 141 (136-145) mmol/L Potassium 4.0 (3.5-5.1) mmol/L Chloride 106 (98-107) mmol/L Carbon Dioxide 23.1 (21.0-32.0) mmol/L BUN 12 (7.0-18.0) mg/dL Creatinine 0.8 (0.6-1.0) mg/dL Est Cr Clr Drug Dosing 85.66 mL/min Estimated GFR (MDRD) > 60.0 ml/min Glucose 97 (74-106) mg/dL Calcium 7.9 L (8.5-10.1) mg/dL Total Bilirubin 0.3 (0.2-1.0) mg/dL AST 28 (15-37) IU/L ALT 49 (14-63) IU/L Alkaline Phosphatase 53 (46-116) U/L Total Protein 6.5 (6.4-8.2) g/dL Albumin 2.8 L (3.4-5.0) g/dL Globulin 3.7 (2.6-4.0) g/dL Albumin/Globulin Ratio 0.8 L (0.9-1.6) Meds: Medications Discontinued Medications Generic Name Dose Route Start Last Admin Trade Name Freq PRN Reason Stop Dose Admin Dexamethasone 10 mg 11/16/20 08:20 11/16/20 08:28 Dexamethasone 10 Mg/Ml Sdv IVPUSH 11/16/20 08:21 10 mg ONETIME ONE Administration Iopamidol 100 ml 11/16/20 09:35 11/16/20 09:35 Iopamidol 755 Mg/Ml 100 Ml Bottle IVPUSH 11/16/20 09:36 100 ml ONETIME ONE Administration - Re-Assessments/Exams Free Text/Narrative Re-Assessment/Exam: 11/16/20 10:[address] scan that did show groundglass opacity likely discharge home with diagnosis. Patient x-ray showed a possible pneumonia but not seen on CAT scan. Patient given instructions that this cough is likely related to her Covid and we will refer her to follow-up with your primary care physician. Departure - Departure Time of Disposition: 10:14 Disposition: Home, Self-Care 01 Condition: Good Clinical Impression: Cough - Discharge Information *PRESCRIPTION DRUG MONITORING PROGRAM REVIEWED*: Not Applicable *COPY OF PRESCRIPTION DRUG MONITORING REPORT IN PATIENT LUIS: Not Applicable Instructions: Cough, Adult, [id number] Referrals: Sil Shirley DO [Primary Care Provider] - Forms: ED Department Discharge Additional Instructions: The following information is given to patients seen in the emergency department who are being discharged to home. This information is to outline your options for follow-up care. We provide all patients seen in our emergency department with a follow-up referral. The need for follow-up, as well as the timing and circumstances, are variable depending upon the specifics of your emergency department visit. If you don't have a primary care physician on staff, we will provide you with a referral. We always advise you to contact your personal physician following an emergency department visit to inform them of the circumstance of the visit and for follow-up with them and/or the need for any referrals to a consulting specialist. The emergency department will also refer you to a specialist when appropriate. This referral assures that you have the opportunity for follow-up care with a specialist. All of these measure are taken in an effort to provide you with optimal care, which includes your follow-up. Under all circumstances we always encourage you to contact your private physician who remains a resource for coordinating your care. When calling for follow-up care, please make the office aware that this follow-up is from your recent emergency room visit. If for any reason you are refused follow-up, please contact the [facility] Emergency Department at and asked to speak to the emergency department charge nurse. Please follow up with your primary care physician. If you do not have a primary care physician, see below: [facility] [address] [place] [address] My [facility] [address] [place] [address] You were seen today for a cough that is likely related to Covid. Please symptoms may last for a few more weeks as you continue to recover from Covid. We recommend you try [id number] cough medicine if the cough becomes too bad. You were given inhaler you can continue to try the inhaler as well. If you have any increased symptoms or complaints please return to the ED. Sepsis Event Note (ED) - Evaluation Sepsis Screening Result: No Definite Risk - Focused Exam Vital Signs: Vital Signs Temp Pulse Resp BP Pulse Ox 11/16/20 07:40 97.2 F 101 H 20 130/93 H 96 - Assessment/Plan Plan: Patient is a 50-year-old female who presents today for cough and still wheezing at the positive for Covid. Patient oxygen level is 95% on room air. Will obtain basic labs we did x-ray and reassess.
--- NOTE | 2020-11-16 08:55 | CR ---
INDICATION: Cough. Recent COVID. TECHNIQUE: Chest. Single view. COMPARISON: 11/09/2020. IMPRESSION: Persistent asymmetric alveolar opacification. Pneumonia could be considered right lower lobe. Slight increase in air bronchograms right lung base. Left lung is clear. Heart size normal. No effusions. No pneumothorax. Dictated by Yefri Ayala MD @ 11/16/2020 8:54:[address] Yefri Ayala @ Nov 16 2020 8:54AM
[2020-11-16 09:03] LABS: BLOOD UREA NITROGEN,BUN 12 mg/dL (7.0-18.0); CARBON DIOXIDE,CO2 23.1 mmol/L (21.0-32.0); CHLORIDE,CL 106 mmol/L (98-107); GLUCOSE RANDOM 97 mg/dL (74-106); SODIUM,NA 141 mmol/L (136-145)
[2020-11-16] MEDS ORDERED: Iopamidol 755 Mg/ML 100 ML Bottle IVPUSH ONE (09:35)
--- NOTE | 2020-11-16 10:02 | CT ---
INDICATION : COVID-19 pneumonia and elevated D-dimer TECHNIQUE : CT Scan of the chest CTA PE protocol. 100 cc nonionic contrast IV COMPARISON : CT scan of the chest 11/02/2018. FINDINGS: Pulmonary arteries: No filling defects. Lungs and pleura: Multifocal peripheral ground-glass alveolar opacities. No effusions. Heart and mediastinum: No change. 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 Unremarkable aortic arch branching and aorta. No adenopathy. No pericardial fluid. Upper abdomen: Stable no change. Skeletal: Stable no change. Anterior right chest wall deformity of with marked anterior angulation of the ribs. Miscellaneous: Right breast prosthesis. Please note that all CT scans at this facility use dose modulation, iterative reconstruction, and/or weight-based dosing when appropriate to reduce radiation dose to as low as reasonably achievable. Dictated by Yefri Ayala MD @ 11/16/2020 10:01:[address] Yefri Ayala @ Nov 16 2020 10:01AM
[2020-11-16 10:22] VITALS: BP 126/97; PULSE 109
== END 2020-11-16 10:27 | disposition home or self-care (01) ==
LOC: MW.ED 07:30
DX: R05 Cough (principal); Z87.891 Personal history of nicotine dependence
CPT/HCPCS: 71045; 71275; 80053; 85025; 85379; 96374; 99285; J1100; Q9967; 99283

== ENCOUNTER 2020-11-18 10:38 | Emergency (ER) | payer BC ==
--- NOTE | 2020-11-18 11:21 | EDM.PDOC ---
ED HPI GENERAL MEDICAL PROBLEM - General Chief Complaint: Respiratory Problem Stated Complaint: SOB Time Seen by Provider: 11/18/20 10:43 Source of Information: Reports: Patient History Limitations: Reports: No Limitations - History of Present Illness INITIAL COMMENTS - FREE TEXT/NARRATIVE: Is a 50-year-old female who presents today for shortness of breath. Patient was seen by me a few days ago she had Covid this month and has been recovering. Patient that time with complaint of shortness of breath we did a CT PE that was negative for any clots or pneumonia. Here patient is satting 94% on room air has no retraction looks comfortable but states that she feels as if he cannot take a deep breath. Patient does have some rhonchi still on her lung exam but denies any nausea vomiting fever chills or other complaints. - Related Data Allergies Allergy/AdvReac Type Severity Reaction Status Date / Time No Known Allergies Allergy Verified 11/18/20 10:46 Home Meds: Home Meds Albuterol Sulfate [Albuterol Sulfate HFA] 8.5 gm INH BID PRN 10 Days #1 inhaler 11/16/20 [Rx] Past Medical History - Past Health History Medical/Surgical History: Denies Medical/Surgical History HEENT History: Reports: None Cardiovascular History: Reports: Other (See Below) Respiratory History: Reports: None Other Respiratory History: Covid-19 Gastrointestinal History: Reports: Cholelithiasis Other Gastrointestinal History: Heartburn on occasion treat with Pepcid Genitourinary History: Reports: None [employer] History: Reports: Prolapsed Uterus, Other (See Below) Other [employer] History: Menorrhagia Musculoskeletal History: Reports: Fracture Other Musculoskeletal History: ORIF Left Ankle Neurological History: Reports: None Psychiatric History: Reports: None Endocrine/Metabolic History: Reports: Other (See Below) Hematologic History: Reports: None Immunologic History: Reports: None Oncologic (Cancer) History: Reports: None Dermatologic History: Reports: None - Infectious Disease History Infectious Disease History: Reports: None - Past Surgical History Head Surgeries/Procedures: Reports: None HEENT Surgical History: Reports: Oral Surgery Cardiovascular Surgical History: Reports: None Respiratory Surgical History: Reports: None GI Surgical History: Reports: Appendectomy Female Surgical History: Reports: Hysterectomy, LEEP Endocrine Surgical History: Reports: None Neurological Surgical History: Reports: None Musculoskeletal Surgical History: Reports: ORIF, Other (See Below) Other Musculoskeletal Surgeries/Procedures:: ankle sx Oncologic Surgical History: Reports: None Dermatological Surgical History: Reports: None - History Comment History Comment: etoh "1x a week" Social & Family History - Family History Family Medical History: No Pertinent Family History Oncologic: Reports: Cervix - Tobacco Use Tobacco Use Status *Q: Never Tobacco User Second Hand Smoke Exposure: No - Caffeine Use Caffeine Use: Reports: None - Recreational Drug Use Recreational Drug Use: No ED ROS GENERAL - Review of Systems Review Of Systems: See Below Constitutional: Reports: No Symptoms HEENT: Reports: No Symptoms Respiratory: Reports: Shortness of Breath, Wheezing Cardiovascular: Reports: No Symptoms Endocrine: Reports: No Symptoms GI/Abdominal: Reports: No Symptoms : Reports: No Symptoms Musculoskeletal: Reports: No Symptoms Skin: Reports: No Symptoms Neurological: Reports: No Symptoms Psychiatric: Reports: No Symptoms Hematologic/Lymphatic: Reports: No Symptoms Immunologic: Reports: No Symptoms ED EXAM, GENERAL - Physical Exam Exam: See Below Exam Limited By: No Limitations General Appearance: Alert, WD/WN, No Apparent Distress Respiratory/Chest: No Respiratory Distress, Rhonchi Cardiovascular: Normal Peripheral Pulses, Regular Rate, Rhythm GI/Abdominal: Normal Bowel Sounds, Soft, Non-Tender Neurological: Alert, Oriented Course - Vital Signs Last Recorded V/S: Last Vital Signs Temp 97.2 F 11/18/20 10:46 Pulse 100 11/18/20 10:46 Resp 18 11/18/20 10:46 BP 143/83 H 11/18/20 10:46 Pulse Ox 94 L 11/18/20 10:46 Departure - Departure Time of Disposition: 11:19 Disposition: Home, Self-Care 01 Condition: Good Clinical Impression: Rhonchi at both lung bases - Discharge Information *PRESCRIPTION DRUG MONITORING PROGRAM REVIEWED*: Not Applicable *COPY OF PRESCRIPTION DRUG MONITORING REPORT IN PATIENT LUIS: Not Applicable Instructions: Upper Respiratory Infection, Adult, [id number] Referrals: PCP,None [Primary Care Provider] - Additional Instructions: The following information is given to patients seen in the emergency department who are being discharged to home. This information is to outline your options for follow-up care. We provide all patients seen in our emergency department with a follow-up referral. The need for follow-up, as well as the timing and circumstances, are variable depending upon the specifics of your emergency department visit. If you don't have a primary care physician on staff, we will provide you with a referral. We always advise you to contact your personal physician following an emergency department visit to inform them of the circumstance of the visit and for follow-up with them and/or the need for any referrals to a consulting specialist. The emergency department will also refer you to a specialist when appropriate. This referral assures that you have the opportunity for follow-up care with a s pecialist. All of these measure are taken in an effort to provide you with optimal care, which includes your follow-up. Under all circumstances we always encourage you to contact your private physici an who remains a resource for coordinating your care. When calling for follow-up care, please make the office aware that this follow-up is from your recent emergency room visit. If for any reason you are refused follow-up, please contact the [facility] at and asked to speak to the emergency department charge nurse. Please follow up with your primary care physician. If you do not have a primary care physician, see below: [facility] [address] [place] [id number] [facility] [address] [place] [id number] You were seen today for shortness of breath that has been present for the past few days. You were seen here few days ago and we did a work-up that did not show any clots or pneumonia. Your oxygen level on room air is 94%. You do have some rhonchi and wheezing on exam. We recommend you take a course of steroids and a Z-Will and continue use your albuterol as needed. Sepsis Event Note (ED) - Evaluation Sepsis Screening Result: No Definite Risk - Focused Exam Vital Signs: Vital Signs Temp Pulse Resp BP Pulse Ox 11/18/20 10:46 97.2 F 100 18 143/83 H 94 L - Assessment/Plan Plan: Patient is a 50-year-old female who presents today for shortness of breath. Patient has some rhonchi bilateral on exam but patient looks to be no distress on exam. Patient looks low at 94%. We already did a CT PE did not show any clots or pneumonia. Will send patient home with another day course of steroids and get patient follow-up PMD.
[2020-11-18 11:43] VITALS: BP 126/82; PULSE 98
== END 2020-11-18 11:44 | disposition home or self-care (01) ==
LOC: MW.ED 10:38
DX: J98.4 Other disorders of lung (principal); Z86.16 Personal history of COVID-19
CPT/HCPCS: 99283

== ENCOUNTER 2020-11-23 06:57 | Inpatient (IN) | payer BC ==
[2020-11-23] MEDS ORDERED: Ipratropium 0.02% 0.5 MG/2.5 ML Neb Soln NEB ONE ×3 (07:45→08:20)
[2020-11-23] MEDS ORDERED: Albuterol 0.083% 2.5 MG/3 ML Neb Soln NEB STA ×2 (07:45→11:34)
[2020-11-23] MEDS ORDERED: Lidocaine 4% 5 ML Amp NEB ONE (07:49)
[2020-11-23] MEDS ORDERED: Magnesium Sulfate (4.06 MEQ/ML) 5 GM/10 ML SDV IV STA (07:51)
[2020-11-23] MEDS ORDERED: Albuterol/Ipratropium 3.0-0.5 MG/3 ML Neb Soln ONE (07:52)
[2020-11-23] MEDS ORDERED: Albuterol 0.083% 2.5 MG/3 ML Neb Soln ONE (07:52)
[2020-11-23] MEDS ORDERED: Magnesium Sulfate/Water 2 GM/50 ML BAG IV SCH (08:00)
[2020-11-23] MEDS ORDERED: Sodium Chloride 0.9% 500 ML IV SCH (08:00)
[2020-11-23] MEDS: Albuterol/Ipratropium 3.0-0.5 MG/3 ML Neb Soln NEB SCH ×3 (08:02→08:39)
[2020-11-23] MEDS: Albuterol 0.083% 2.5 MG/3 ML Neb Soln NEB SCH ×3 (08:02→08:39)
[2020-11-23] MEDS ORDERED: Albuterol 0.083% 2.5 MG/3 ML Neb Soln NEB SCH (08:05)
--- NOTE | 2020-11-23 08:17 | CR ---
INDICATION: Cough, dyspnea. TECHNIQUE: Portable AP chest radiograph. COMPARISON: 11/16/2020. FINDINGS: Similar mild-moderate patchy opacities predominating in the right mid lung. No pneumothorax or pleural effusion. Unchanged cardiac and mediastinal contours. IMPRESSION: Similar patchy opacities predominantly right midlung, as may be seen with multifocal infection such as COVID-19. Dictated by Andrea Wilson MD @ 11/23/2020 8:14:39 AM Dictated by: Andrea Wilson MD @ 11/23/2020 08:14:45 (Electronically Signed)
[2020-11-23] MEDS ORDERED: Albuterol 0.083% 2.5 MG/3 ML Neb Soln NEB ONE (08:20)
[2020-11-23] MEDS ORDERED: Lidocaine 1% PF 2 ML SDV INJECT ONE (08:26)
--- NOTE | 2020-11-23 08:31 | EDM.PDOC ---
ED HPI GENERAL MEDICAL PROBLEM - General Chief Complaint: Respiratory Problem Stated Complaint: TROUBLE BREATHING Time Seen by Provider: 11/23/20 07:21 - History of Present Illness INITIAL COMMENTS - FREE TEXT/NARRATIVE: CHIEF COMPLAINT(S): Shortness of breath HISTORY OF PRESENT ILLNESS: This is a 50-year-old with a prior history of [id number] tobacco use who quit tobacco approximately 5 years ago and recent COVID-19 infection with symptom onset of November 03, 2020 who comes to the emergency department with a chief complaint of shortness of breath. The patient states that approximately 1 week ago she was evaluated here in the emergency department and got a CT and was treated with steroids and then was discharged with azithromycin and prednisone. She states that with the azithromycin and the prednisone that her symptoms did improve however she finished her last dose of her steroids approximately 2 days ago and last night she started to experience worsening cough, wheezing, and shortness of breath. She states that the cough is nonproductive. She states that she has been using the albuterol inhaler at night approximately every 2 hours. She denies any history of asthma or COPD. She denies any chest pain, diaphoresis, syncope. She denies any other symptoms such as fever, chills, lower extremity edema, recent travel or recent surgery. REVIEW OF SYSTEMS: Constitutional: Denies fever, chills. Eyes: Denies eye pain Ears, Nose, Mouth, & Throat: Denies earache Cardiovascular: Denies chest pain Respiratory: Positive for shortness of breath, cough, wheezing Gastrointestinal: Denies Nausea, vomiting, diarrhea, hematochezia. Genitourinary: Denies hematuria Skin:Denies a rash MSK: Denies joint pain Neurological: Denies blurred vision Psychiatric: Denies depression PAST MEDICAL HISTORY: As per history of present illness and as reviewed below otherwise noncontributory. SURGICAL HISTORY: As per history of present illness and as reviewed below otherwise noncontributory. SOCIAL HISTORY: As per history of present illness and as reviewed below otherwise noncontributory. FAMILY HISTORY: As per history of present illness and as reviewed below otherwise noncontributory. EXAMINATION OF ORGAN SYSTEMS/BODY AREAS: Constitutional: Blood pressure is 141/79, heart rate 90, respiratory rate 18 with an oxygen saturation of 93% on room air. Temperature 35.9 temporally. Temperature 98.6 orally. General: Overall well-appearing woman who is in no acute distress Psychiatric: Appropriate mood and affect. Eyes: No scleral icterus or conjunctival erythema ENMT: Moist mucous membranes. No pharyngeal erythema Cardiovascular: Tachycardic and regular no gallops, murmurs, or rubs. Bilateral upper extremity pulses symmetric and intact. No peripheral edema. No JVD. Respiratory: The patient is speaking in full sentences no increased work of breathing. The patient has bilateral inspiratory and expiratory wheezing. Gastrointestinal: Soft, non-tender, non-distended. Normoactive bowel sounds Genitourinary: No suprapubic tenderness Musculoskeletal: Normal range of motion. Skin: No lesions or abrasions. Neurological: Alert, GCS 15 MEDICAL DECISION MAKING AND COURSE IN THE ED WITH INTERPRETATION/REVIEW OF DIAGNOSTIC STUDIES: This is a 50-year-old with a prior history of [id number] tobacco use who quit tobacco approximately 5 years ago and recent COVID-19 infection with symptom onset of November 03, 2020 who comes to the emergency department with bilateral inspiratory and expiratory wheezing approximately 3 weeks post Covid symptom onset. At this time I do suspect underlying COPD versus asthma versus acute bronchitis. The patient is afebrile and overall appears well however she does have continued wheezing. We will obtain an EKG for evaluation and a chest x-ray. We will provide the patient with albuterol 5 mg and ipratropium 0.5 mg every 20 minutes for 3 doses. Patient has received a significant amount of steroids therefore we will hold off on steroid administration at this time. We will provide the patient with 2 g of IV magnesium. Laboratory: CBC reveals thrombocytosis at 507 otherwise unremarkable. BMP reveals hypocalcemia 8.3 otherwise unremarkable. TSH is 0.06, T4 is 1.37. The radiological images were viewed by myself along with reading the report from the radiologist. Chest x-ray reveals similar patchy opacities predominantly in the right midlung otherwise no acute cardiopulmonary process. After 3 DuoNeb treatments I did reevaluate the patient. The patient's oxygenation at this time did increase to 98% on room air. The patient's tachycardia continued. Therefore I did perform a bedside ultrasound which did not reveal any pericardial effusion with good ejection fraction. There is no obvious abnormality or evidence of intracardiac clot. court recording monitor at this time did atrial fibrillation with rapid ventricular response and pulse oximetry with good waveform was 95% on room air. We did obtain a repeat EKG which did reveal atrial fibrillation with RVR. I did contact [facility] in [place] and spoke with track rider Dr. Meyers who agreed that his atrial fibrillation with RVR. He recommended rate control with Cardizem and Cardizem drip with anticoagulation given her history of Covid. I did provide the patient with 25 mg of IV Cardizem without any resultant decrease in her heart rate therefore we provided an additional bolus of 20 mg and started a diltiazem drip. We did start heparin. At this time I did discuss with her and like to admit her to the hospital for atrial fibrillation with RVR. She was amenable to this plan. I contacted hospitalist who accepted the patient for admission. DISPOSITION: Patient is admitted to the hospital in stable condition CONDITION: Serious PROCEDURES: Cardiac monitoring interpretation, pulse oximetry interpretation FINAL IMPRESSION(S)/DIAGNOSES: 1. Acute bronchitis possibly secondary to underlying COPD secondary to tobacco use 2. Acute atrial fibrillation with RVR, new onset Critical Care Procedure Note Authorized and performed by: Marcus Forbes M.D. Critical Care Time: 65 minutes Due to a high probability of clinically significant, life threatening deterioration, the patient required my highest level of preparedness to intervene emergently and I personally spent this critical care time directly and personally managing the patient. This critical care time included obtaining a history, examining the patient, pulse oximetry; ordering and review of studies; arranging urgent treatment with development of a management plan; evaluation of a patients reponse to treatment; frequent assessment; and discussions with other providers. This critical care time was performed to assess and manage the high probability of imminent, life threatening deterioration that could result in multiorgan failure. It was exclusive of separate billable procedures and treating other patients. Please see MDM section and rest of the note for further information on patient assessment and treatment. Please see MDM section and rest of the note for further information on patient assessment and treatment. Marcus Forbes M.D. - Related Data Allergies Allergy/AdvReac Type Severity Reaction Status Date / Time No Known Allergies Allergy Verified 11/23/20 13:39 Home Meds: Home Meds Albuterol Sulfate [Albuterol Sulfate HFA] 1 - 2 inh INH ASDIRECTED PRN 11/23/20 [History] Past Medical History - Past Health History Medical/Surgical History: Denies Medical/Surgical History HEENT History: Reports: None Cardiovascular History: Reports: None Respiratory History: Reports: None Other Respiratory History: Covid-19 Gastrointestinal History: Reports: Cholelithiasis Other Gastrointestinal History: Heartburn on occasion treat with Pepcid Genitourinary History: Reports: None TURN DOWN MAN History: Reports: Prolapsed Uterus, Other (See Below) Other TURN DOWN MAN History: Menorrhagia Musculoskeletal History: Reports: Fracture Other Musculoskeletal History: ORIF Left Ankle Neurological History: Reports: None Psychiatric History: Reports: None Endocrine/Metabolic History: Reports: None 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 Hematologic History: Reports: None Immunologic History: Reports: None Oncologic (Cancer) History: Reports: None Dermatologic History: Reports: None - Infectious Disease History Infectious Disease History: Reports: Other (See Below) Other Infectious Disease History: Covid-19 - Past Surgical History Head Surgeries/Procedures: Reports: None HEENT Surgical History: Reports: Oral Surgery Cardiovascular Surgical History: Reports: None Respiratory Surgical History: Reports: None GI Surgical History: Reports: Appendectomy Female Surgical History: Reports: Hysterectomy, LEEP Endocrine Surgical History: Reports: None Neurological Surgical History: Reports: None Musculoskeletal Surgical History: Reports: ORIF Oncologic Surgical History: Reports: None Dermatological Surgical History: Reports: None - History Comment History Comment: etoh "1x a week" Social & Family History - Family History Family Medical History: No Pertinent Family History Oncologic: Reports: Cervix - Caffeine Use Caffeine Use: Reports: Coffee - Recreational Drug Use Recreational Drug Use: No ED ROS GENERAL - Review of Systems Review Of Systems: See Below ED EXAM, GENERAL - Physical Exam Exam: See Below Course - Vital Signs Last Recorded V/S: Last Vital Signs Temp 36.7 C 11/23/20 19:00 Pulse 122 H 11/23/20 12:20 Resp 20 11/23/20 19:00 BP 129/70 11/23/20 19:00 Pulse Ox 93 L 11/23/20 19:00 - Orders/Labs/Meds Orders: Active Orders 24 hr Category Date Time Status RT Aerosol Therapy [RC] ASDIRECTED Care 11/23/20 07:46 Active RT Aerosol Therapy [RC] ASDIRECTED Care 11/23/20 07:47 Active RT Aerosol Therapy [RC] ASDIRECTED Care 11/23/20 07:48 Active RT Aerosol Therapy [RC] ASDIRECTED Care 11/23/20 07:53 Active RT Post Treatment Assessment [RC] Click to Edit Care 11/23/20 07:46 Active RT Post Treatment Assessment [RC] Click to Edit Care 11/23/20 07:47 Active RT Post Treatment Assessment [RC] Click to Edit Care 11/23/20 07:48 Active RT Pre-Treatment Assessment [RC] Click to Edit Care 11/23/20 07:46 Active RT Pre-Treatment Assessment [RC] Click to Edit Care 11/23/20 07:47 Active RT Pre-Treatment Assessment [RC] Click to Edit Care 11/23/20 07:48 Active PTT,PARTIAL THROMBOPLSTIN TIME [COAG] Q6H Lab 11/23/20 23:15 Ordered PTT,PARTIAL THROMBOPLSTIN TIME [COAG] Q6H Lab 11/24/20 05:15 Ordered PTT,PARTIAL THROMBOPLSTIN TIME [COAG] Q6H Lab 11/24/20 11:15 Ordered PTT,PARTIAL THROMBOPLSTIN TIME [COAG] Q6H Lab 11/24/20 17:15 Ordered PTT,PARTIAL THROMBOPLSTIN TIME [COAG] Q6H Lab 11/24/20 23:15 Ordered Heparin Sodium/0.45% NaCl [Heparin 25,000 Units in 1/2 Med 11/23/20 11:15 Active NS 500 ML] 500 ml IV TITRATE Sodium Chloride 0.9% [Normal Saline] 500 ml Med 11/23/20 08:00 Active IV .BOLUS Medication Orders Acetaminophen (Acetaminophen 325 Mg Tab) 650 mg PO Q4H PRN PRN Reason: Pain (Mild 1-3)/fever Albuterol/Ipratropium (Albuterol/Ipratropium 4 Gm Inhalation [place]) 0 gm INH Q4H [facility] Last Admin: 11/23/20 16:27 Dose: 1 puff Documented by: Admin: 11/23/20 13:27 Dose: 1 puff Documented by: GABINO Albuterol/Ipratropium (Albuterol/Ipratropium 3.0-0.5 Mg/3 Ml Neb Soln) 3 ml NEB Q3H PRN PRN Reason: Shortness of Breath Azithromycin (Azithromycin 250 Mg Tab) 500 mg PO Q24H [facility] Last Admin: 11/23/20 13:56 Dose: 500 mg Documented by: GABINO Guaifenesin/Dextromethorphan (Guaifenesin/Dextromethorphan 100-10 Mg/5 Ml Soln 10 Ml Cup) 10 ml PO Q4H PRN PRN Reason: Cough Last Admin: 11/23/20 15:11 Dose: 10 ml Documented by: GABINO Sodium Chloride (Normal Saline) 500 mls @ 500 mls/hr IV .BOLUS HUGO Last Admin: 11/23/20 08:23 Dose: 500 mls/hr Documented by: CORNELL Heparin Sodium/Sodium Chloride (Heparin 25,000 Units In 1/2 Ns 500 Ml) 500 mls @ 21.228 mls/hr IV TITRATE HUGO; Protocol Last Titration: 11/23/20 18:15 Dose: 16 units/kg/hr, 28.304 mls/hr Documented by: GABINO Cosigned by: SVETA Admin: 11/23/20 12:02 Dose: 12 units/kg/hr, 21.228 mls/hr Documented by: CORNELL Cosigned by: ERICK Ceftriaxone Sodium/Dextrose 1 (gm/ Premix) 50 mls @ 100 mls/hr IV Q24H HUGO Last Admin: 11/23/20 13:57 Dose: 100 mls/hr Documented by: GABINO Diltiazem HCl 100 mg/ Sodium (Chloride) 100 mls @ 15 mls/hr IV NOW HUGO; Protocol Last Admin: 11/23/20 18:15 Dose: 15 mg/hr, 15 mls/hr Documented by: GABINO Methylprednisolone Sodium Succinate (Methylprednisolone Sodium Succinate 40 Mg/1 Ml Sdv) 40 mg IVPUSH Q8H HUGO Last Admin: 11/23/20 13:29 Dose: 40 mg Documented by: GABINO Labs: Laboratory Tests 11/23/20 11/23/20 11/23/20 Range/Units 08:18 08:18 08:18 WBC 10.23 (4.0-11.0) K/uL RBC 4.52 (4.30-5.90) M/uL Hgb 14.0 (12.0-16.0) g/dL Hct 42.1 (36.0-46.0) % MCV 93.1 (80.0-98.0) fL MCH 31.0 (27.0-32.0) pg MCHC 33.3 (31.0-37.0) g/dL RDW Std Deviation 47.3 (28.0-62.0) fl RDW Coeff of Srinivas 14 (11.0-15.0) % Plt Count 507 H (150-400) K/uL MPV 8.90 (7.40-12.00) fL Neut % (Auto) 63.3 (48.0-80.0) % Lymph % (Auto) 24.9 (16.0-40.0) % [place] % (Auto) 6.4 (0.0-15.0) % Eos % (Auto) 4.7 (0.0-7.0) % Baso % (Auto) 0.7 (0.0-1.5) % Neut # (Auto) 6.5 H (1.4-5.7) K/uL Lymph # (Auto) 2.6 H (0.6-2.4) K/uL [place] # (Auto) 0.7 (0.0-0.8) K/uL Eos # (Auto) 0.5 (0.0-0.7) K/uL Baso # (Auto) 0.1 (0.0-0.1) K/uL Nucleated RBC % 0.0 /100WBC Nucleated RBCs # 0 K/uL Sodium 140 (136-145) mmol/L Potassium 4.1 (3.5-5.1) mmol/L Chloride 104 (98-107) mmol/L Carbon Dioxide 25.5 (21.0-32.0) mmol/L BUN 13 (7.0-18.0) mg/dL Creatinine 0.7 (0.6-1.0) mg/dL Est Cr Clr Drug Dosing 98.25 mL/min Estimated GFR (MDRD) > 60.0 ml/min Glucose 100 (74-106) mg/dL Calcium 8.3 L (8.5-10.1) mg/dL Free T4 1.37 (0.76-1.46) ng/dL TSH 3rd Generation 0.06 L (0.36-3.74) uIU/mL Meds: Medications Generic Name Dose Route Start Last Admin Trade Name Freq PRN Reason Stop Dose Admin Acetaminophen 650 mg 11/23/20 12:39 Acetaminophen 325 Mg Tab PO Q4H PRN Pain (Mild 1-3)/fever Albuterol/Ipratropium 0 gm 11/23/20 12:45 11/23/20 16:27 Albuterol/Ipratropium 4 Gm Inhalation [place] INH 1 puff Q4H HUGO Administration Albuterol/Ipratropium 3 ml 11/23/20 12:42 Albuterol/Ipratropium 3.0-0.5 Mg/3 Ml Neb Soln NEB Q3H PRN Shortness of Breath Azithromycin 500 mg 11/23/20 13:30 11/23/20 13:56 Azithromycin 250 Mg Tab PO 500 mg Q24H HUGO Administration Guaifenesin/Dextromethorphan 10 ml 11/23/20 14:40 11/23/20 15:11 Guaifenesin/Dextromethorphan 100-10 Mg/5 Ml Soln 10 Ml Cup PO 10 ml Q4H PRN Administration Cough Sodium Chloride 500 mls @ 500 mls/hr 11/23/20 08:00 11/23/20 08:23 Normal Saline IV 500 mls/hr .BOLUS HUGO Administration Heparin Sodium/Sodium Chloride 500 mls @ 21.228 mls/hr 11/23/20 11:15 11/23/20 18:15 Heparin 25,000 Units In 1/2 Ns 500 Ml IV 16 units/kg/hr TITRATE HUGO 28.304 mls/hr Titration Protocol 12 UNITS/KG/HR Ceftriaxone Sodium/Dextrose 1 50 mls @ 100 mls/hr 11/23/20 13:00 11/23/20 13:57 gm/ Premix IV 100 mls/hr Q24H HUGO Administration Diltiazem HCl 100 mg/ Sodium 100 mls @ 15 mls/hr 11/23/20 18:15 11/23/20 18:15 Chloride IV 15 mg/hr NOW HUGO 15 mls/hr Administration Protocol 15 MG/HR Methylprednisolone Sodium Succinate 40 mg 11/23/20 12:45 11/23/20 13:29 Methylprednisolone Sodium Succinate 40 Mg/1 Ml Sdv IVPUSH 40 mg Q8H HUGO Administration Discontinued Medications Generic Name Dose Route Start Last Admin Trade Name Freq PRN Reason Stop Dose Admin Albuterol 5 mg 11/23/20 07:45 11/23/20 08:00 Albuterol 0.083% 2.5 Mg/3 Ml Neb Soln NEB 11/23/20 07:46 Not Given ONETIME STA Albuterol 5 mg 11/23/20 08:05 Albuterol 0.083% 2.5 Mg/3 Ml Neb Soln NEB ONETIME HUGO Albuterol 5 mg 11/23/20 08:20 Albuterol 0.083% 2.5 Mg/3 Ml Neb Soln NEB 11/23/20 08:21 ONETIME ONE Albuterol Confirm 11/23/20 07:52 11/23/20 07:58 Albuterol 0.083% 2.5 Mg/3 Ml Neb Soln Administered 11/23/20 07:53 Not Given Dose 2.5 mg .ROUTE .STK-MED ONE Albuterol 2.5 mg 11/23/20 07:53 11/23/20 08:39 Albuterol 0.083% 2.5 Mg/3 Ml Neb Soln NEB 11/23/20 08:34 2.5 mg Q20M HUGO Administration Albuterol 5 mg 11/23/20 11:34 11/23/20 12:12 Albuterol 0.083% 2.5 Mg/3 Ml Neb Soln NEB 11/23/20 11:35 5 mg ONETIME STA Administration Albuterol/Ipratropium Confirm 11/23/20 07:52 11/23/20 07:58 Albuterol/Ipratropium 3.0-0.5 Mg/3 Ml Neb Soln Administered 11/23/20 07:53 Not Given Dose 3 ml .ROUTE .STK-MED ONE Albuterol/Ipratropium 3 ml 11/23/20 07:53 11/23/20 08:39 Albuterol/Ipratropium 3.0-0.5 Mg/3 Ml Neb Soln NEB 11/23/20 08:34 3 ml Q20M HUGO Administration Azithromycin 500 mg 11/23/20 13:30 Azithromycin 100 Mg/5 Ml Susp 15 Ml Bottle PO Q24H HUGO Diltiazem HCl 25 mg 11/23/20 10:22 11/23/20 10:28 Diltiazem 25 Mg/5 Ml Sdv IVPUSH 11/23/20 10:23 25 mg ONETIME ONE Administration Diltiazem HCl 20 mg 11/23/20 10:46 11/23/20 10:50 Diltiazem 25 Mg/5 Ml Sdv IVPUSH 11/23/20 10:47 20 mg ONETIME ONE Administration Diltiazem HCl 5 mg 11/23/20 13:15 11/23/20 13:25 Diltiazem 25 Mg/5 Ml Sdv IVPUSH 11/23/20 13:16 5 mg ONETIME ONE Administration Heparin Sodium (Porcine) 2,000 units 11/23/20 18:10 11/23/20 18:23 Heparin Sodium 5,000 Units/Ml Vial IVPUSH 11/23/20 18:11 2,000 units .BOLUS ONE Administration Magnesium Sulfate 2 gm in 50 mls @ 25 mls/hr 11/23/20 08:00 11/23/20 08:24 Magnesium Sulfate In Water 2 Gm/50 Ml IV 11/23/20 09:59 25 mls/hr ASDIRECTED HUGO Administration Diltiazem HCl 100 mg/ Sodium 100 mls @ 5 mls/hr 11/23/20 11:00 11/23/20 13:15 Chloride IV 15 mg/hr NOW HUGO 15 mls/hr Titration Protocol 5 MG/HR Lactated Ringer's 500 mls @ 999 mls/hr 11/23/20 12:39 11/23/20 13:20 Ringers, Lactated IV 11/23/20 13:09 999 mls/hr BOLUS ONE Administration Ipratropium [place] 0.5 mg 11/23/20 07:45 11/23/20 08:00 Ipratropium 0.02% 0.5 Mg/2.5 [facility] 11/23/20 07:46 Not Given ONETIME ONE Ipratropium [place] 0.5 mg 11/23/20 08:05 Ipratropium 0.02% 0.5 Mg/2.5 Ml [facility] 11/23/20 08:06 ONETIME ONE Ipratropium [place] 0.5 mg 11/23/20 08:20 Ipratropium 0.02% 0.5 Mg/2.5 Ml [facility] 11/23/20 08:21 ONETIME ONE Lidocaine HCl 5 ml 11/23/20 07:49 11/23/20 08:28 Lidocaine 4% 5 Ml [facility] 11/23/20 07:50 Not Given ONETIME ONE Lidocaine HCl 2 ml 11/23/20 08:26 11/23/20 08:35 Lidocaine 1% Pf 2 Ml Sdv INJECT 11/23/20 08:27 2 ml ONETIME ONE Administration Prednisone 60 mg 11/23/20 11:25 11/23/20 11:59 Prednisone 20 Mg Tab PO 11/23/20 11:26 60 mg NOW STA Administration Departure - Departure Time of Disposition: 11:12 Disposition: Admitted As Inpatient 64 Condition: Serious Clinical Impression: COVID-19, Atrial fibrillation with rapid ventricular response, Acute bronchitis - Discharge Information Sepsis Event Note (ED) - Evaluation Sepsis Screening Result: No Definite Risk - Focused Exam Vital Signs: Vital Signs Pulse Pulse BP Pulse Ox 11/23/20 10:53 140 H 92 L 11/23/20 10:40 131 H 11/23/20 10:23 169 H 119/90 95 11/23/20 09:54 160 H 134/81 98 11/23/20 08:55 139 H 141/70 H 98 - My Orders Last 24 Hours: My Active Orders 11/23/20 07:46 RT Aerosol Therapy [RC] ASDIRECTED RT Post Treatment Assessment [RC] Click to Edit RT Pre-Treatment Assessment [RC] Click to Edit 11/23/20 07:47 RT Aerosol Therapy [RC] ASDIRECTED RT Post Treatment Assessment [RC] Click to Edit RT Pre-Treatment Assessment [RC] Click to Edit 11/23/20 07:48 RT Aerosol Therapy [RC] ASDIRECTED RT Post Treatment Assessment [RC] Click to Edit RT Pre-Treatment Assessment [RC] Click to Edit 11/23/20 07:53 RT Aerosol Therapy [RC] ASDIRECTED 11/23/20 08:00 Sodium Chloride 0.9% [Normal Saline] 500 ml IV .BOLUS 11/23/20 11:15 Heparin Sodium/0.45% NaCl [Heparin 25,000 Units in 1/2 NS 500 ML] 500 ml IV TITRATE 11/23/20 23:15 PTT,PARTIAL THROMBOPLSTIN TIME [COAG] Q6H 11/24/20 05:15 PTT,PARTIAL THROMBOPLSTIN TIME [COAG] Q6H 11/24/20 11:15 PTT,PARTIAL THROMBOPLSTIN TIME [COAG] Q6H 11/24/20 17:15 PTT,PARTIAL THROMBOPLSTIN TIME [COAG] Q6H 11/24/20 23:15 PTT,PARTIAL THROMBOPLSTIN TIME [COAG] Q6H - Assessment/Plan Last 24 Hours: My Active Orders 11/23/20 07:46 RT Aerosol Therapy [RC] ASDIRECTED RT Post Treatment Assessment [RC] Click to Edit RT Pre-Treatment Assessment [RC] Click to Edit 11/23/20 07:47 RT Aerosol Therapy [RC] ASDIRECTED RT Post Treatment Assessment [RC] Click to Edit RT Pre-Treatment Assessment [RC] Click to Edit 11/23/20 07:48 RT Aerosol Therapy [RC] ASDIRECTED RT Post Treatment Assessment [RC] Click to Edit RT Pre-Treatment Assessment [RC] Click to Edit 11/23/20 07:53 RT Aerosol Therapy [RC] ASDIRECTED 11/23/20 08:00 Sodium Chloride 0.9% [Normal Saline] 500 ml IV .BOLUS 11/23/20 11:15 Heparin Sodium/0.45% NaCl [Heparin 25,000 Units in 1/2 NS 500 ML] 500 ml IV TITRATE 11/23/20 23:15 PTT,PARTIAL THROMBOPLSTIN TIME [COAG] Q6H 11/24/20 05:15 PTT,PARTIAL THROMBOPLSTIN TIME [COAG] Q6H 11/24/20 11:15 PTT,PARTIAL THROMBOPLSTIN TIME [COAG] Q6H 11/24/20 17:15 PTT,PARTIAL THROMBOPLSTIN TIME [COAG] Q6H 11/24/20 23:15 PTT,PARTIAL THROMBOPLSTIN TIME [COAG] Q6H
[2020-11-23 08:48] LABS: BLOOD UREA NITROGEN,BUN 13 mg/dL (7.0-18.0); CARBON DIOXIDE,CO2 25.5 mmol/L (21.0-32.0); CHLORIDE,CL 104 mmol/L (98-107); GLUCOSE RANDOM 100 mg/dL (74-106); POTASSIUM,K 4.1 mmol/L (3.5-5.1); SODIUM,NA 140 mmol/L (136-145)
--- NOTE | 2020-11-23 09:02 | PCM.EKG ---
#1 Interpretation EKG Date: 11/23/20 Time: 07:31 Rhythm: Other Rate (Beats/Min): 134 [place]: Normal P-Wave: Variable QRS: Normal ST-T: Normal QT: Normal Comparison: NA - No Prior EKG (Multifocal Atrial Tachycardia vs Sinus Rhythm w/ PAC)
[2020-11-23] MEDS ORDERED: Diltiazem 25 MG/5 ML SDV IVPUSH ONE ×3 (10:22→13:15)
[2020-11-23] MEDS ORDERED: Diltiazem 100 MG in Sodium Chloride 0.9% 100 ML IV SCH ×2 (11:00→18:15)
[2020-11-23] MEDS ORDERED: predniSONE 20 MG Tab PO STA (11:25)
--- NOTE | 2020-11-23 11:36 | PCM.EKG ---
#2 Interpretation EKG Date: 11/23/20 Time: 09:56 Rhythm: A-Fib Rate (Beats/Min): 203 [place]: Normal P-Wave: Absent QRS: Normal ST-T: Normal QT: Normal Comparison: No Change (today) EKG Interpretation Comments: Atrial Filbrillation w/ RVR. Discussed with Dr. Meyers
--- NOTE | 2020-11-23 11:56 | PCM.HP.2 ---
H&P History of Present Illness - General Date of Service: 11/23/20 Admit Problem/Dx: Admission Diagnosis/Problem Admission Diagnosis/Problem Atrial fibrillation Source of Information: Patient History Limitations: Reports: No Limitations - History of Present Illness Initial Comments - Free Text/Narative: This is a 50-year-old female with no stated past medical history presenting today for worsening dyspnea/wheezing in light of her history of recent Covid pneumonia. Endorses previous history of tobacco abuse x20 years with quitting 5 years prior. ED notes 50-year-old with a prior history of [id number] tobacco use who quit tobacco approximately 5 years ago and recent COVID-19 infection with symptom onset of November 03, 2020 who comes to the emergency department with a chief complaint of shortness of breath. The patient states that approximately 1 week ago she was evaluated here in the emergency department and got a CT and was treated with steroids and then was discharged with azithromycin and prednisone. She states that with the azithromycin and the prednisone that her symptoms did improve however she finished her last dose of her steroids approximately 2 days ago and last night she started to experience worsening cough, wheezing, and shortness of breath. She states that the cough is nonproductive. She states that she has been using the albuterol inhaler at night approximately every 2 hours. She denies any history of asthma or COPD. She denies any chest pain, diaphoresis, syncope. She denies any other symptoms such as fever, chills, lower extremity edema, recent travel or recent surgery. ED course :received multiple doses of Duo-neb and one dose of IV magnesium to aid in respiratory status. EKG: AFIB w. RVR Vitals: Blood pressure: 141/70, pulse rate of 139, respiratory rate of 18 O2 saturation 98% room air. Labs CBC unremarkable CMP: TSH 0.06 Bedside: 50-year-old female with no significant past medical history presenting today with worsening dyspnea/wheezing. Recent diagnosis of Covid on November 10, 2019 but did start having symptoms on November 04 while vacationing in [place]. Was seen in the ED on November 09, November 16 and November 18 for similar symptoms November 19 patient was complaining of shortness of breath and a CTA scan was done for concerns for PE which was negative for any clots/pneumonia. At that time patient was a 94% room air and she was uncomfortable per ED notes. Endorses completing her prednisone 2 days prior along with her azithromycin. Has been using albuterol inhaler every 2 hours since last night to help w. cough, wheeze and dyspnea. Denies any history of A. fib or irregular heart rate does mention for the past 10 years having episodes of fast heart rate at times. Denies any new symptoms or additional information at bedside at this time. - Related Data Allergies/Adverse Reactions: Allergies Allergy/AdvReac Type Severity Reaction Status Date / Time No Known Allergies Allergy Verified 11/23/20 07:08 Home Medications: Home Meds Albuterol Sulfate [Albuterol Sulfate HFA] 1 - 2 inh INH ASDIRECTED PRN 11/23/20 [History] Past Medical History - Past Health History Medical/Surgical History: Denies Medical/Surgical History HEENT History: Reports: None Cardiovascular History: Reports: None Respiratory History: Reports: None Other Respiratory History: Covid-19 Gastrointestinal History: Reports: Cholelithiasis Other Gastrointestinal History: Heartburn on occasion treat with Pepcid Genitourinary History: Reports: None ENAMEL PULVERIZER History: Reports: Prolapsed Uterus, Other (See Below) Other OB/BYN History: Menorrhagia Musculoskeletal History: Reports: Fracture Other Musculoskeletal History: ORIF Left Ankle Neurological History: Reports: None Psychiatric History: Reports: None Endocrine/Metabolic History: Reports: None Insulin Pump Model and Flake Drier: None Hematologic History: Reports: None Immunologic History: Reports: None Oncologic (Cancer) History: Reports: None Dermatologic History: Reports: None - Infectious Disease History Infectious Disease History: Reports: Other (See Below) Other Infectious Disease History: Covid-19 - Past Surgical History Head Surgeries/Procedures: Reports: None HEENT Surgical History: Reports: Oral Surgery Cardiovascular Surgical History: Reports: None Respiratory Surgical History: Reports: None GI Surgical History: Reports: Appendectomy Female Surgical History: Reports: Hysterectomy, LEEP Endocrine Surgical History: Reports: None Neurological Surgical History: Reports: None Musculoskeletal Surgical History: Reports: ORIF Oncologic Surgical History: Reports: None Dermatological Surgical History: Reports: None - History Comment History Comment: etoh "1x a week" Social & Family History - Family History Family Medical History: No Pertinent Family History Oncologic: Reports: Cervix - Caffeine Use Caffeine Use: Reports: Coffee - Recreational Drug Use Recreational Drug Use: No H&P Review of Systems - Review of Systems: Review Of Systems: See Below General: Denies: Fever, Chills HEENT: Reports: No Symptoms Pulmonary: Reports: Shortness of Breath, Wheezing, Cough. Denies: Pleuritic Chest Pain, Sputum, Hemoptysis Cardiovascular: Denies: Chest Pain, Palpitations, Dyspnea on Exertion, Edema Gastrointestinal: Reports: No Symptoms Genitourinary: Reports: No Symptoms Musculoskeletal: Reports: No Symptoms Psychiatric: Reports: No Symptoms Neurological: Reports: No Symptoms Exam - Exam Exam: See Below - Vital Signs Vital Signs: Last Vital Signs Temp 96.7 F L 11/23/20 07:10 Pulse 131 H 11/23/20 10:40 Resp 18 11/23/20 07:10 BP 119/90 11/23/20 10:23 Pulse Ox 95 11/23/20 10:23 Weight: 88.451 kg - Exam Quality Assessment: No: Supplemental Oxygen General: Alert, Oriented, Cooperative HEENT: EOMI, Mucosa Moist & [place] Neck: Trachea Midline Lungs: Other (inspiratory/expiratoy wheeze ; ) Cardiovascular: Irregular Rhythm, Tachycardia GI/Abdominal Exam: Soft, Non-Tender Extremities: Normal Inspection, Non-Tender Skin: Warm Neuro Extensive - Mental Status: Alert, Oriented x3 Psychiatric: Alert - Patient Data Lab Results Last 24 hrs: Laboratory Results - last 24 hr 11/23/20 11/23/20 11/23/20 Range/Units 08:18 08:18 08:18 WBC 10.23 (4.0-11.0) K/uL RBC 4.52 (4.30-5.90) M/uL Hgb 14.0 (12.0-16.0) g/dL Hct 42.1 (36.0-46.0) % MCV 93.1 (80.0-98.0) fL MCH 31.0 (27.0-32.0) pg MCHC 33.3 (31.0-37.0) g/dL RDW Std Deviation 47.3 (28.0-62.0) fl RDW Coeff of Srinivas 14 (11.0-15.0) % Plt Count 507 H (150-400) K/uL MPV 8.90 (7.40-12.00) fL Neut % (Auto) 63.3 (48.0-80.0) % Lymph % (Auto) 24.9 (16.0-40.0) % Sharkey % (Auto) 6.4 (0.0-15.0) % Eos % (Auto) 4.7 (0.0-7.0) % Baso % (Auto) 0.7 (0.0-1.5) % Neut # (Auto) 6.5 H (1.4-5.7) K/uL Lymph # (Auto) 2.6 H (0.6-2.4) K/uL Sharkey # (Auto) 0.7 (0.0-0.8) K/uL Eos # (Auto) 0.5 (0.0-0.7) K/uL Baso # (Auto) 0.1 (0.0-0.1) K/uL Nucleated RBC % 0.0 /100WBC Nucleated RBCs # 0 K/uL APTT (18.6-31.3) SEC Sodium 140 (136-145) mmol/L Potassium 4.1 (3.5-5.1) mmol/L Chloride 104 (98-107) mmol/L Carbon Dioxide 25.5 (21.0-32.0) mmol/L BUN 13 (7.0-18.0) mg/dL Creatinine 0.7 (0.6-1.0) mg/dL Est Cr Clr Drug Dosing 98.25 mL/min Estimated GFR (MDRD) > 60.0 ml/min Glucose 100 (74-106) mg/dL Calcium 8.3 L (8.5-10.1) mg/dL Free T4 1.37 (0.76-1.46) ng/dL TSH 3rd Generation 0.06 L (0.36-3.74) uIU/mL 11/23/20 Range/Units 11:27 WBC (4.0-11.0) K/uL RBC (4.30-5.90) M/uL Hgb (12.0-16.0) g/dL Hct (36.0-46.0) % MCV (80.0-98.0) fL MCH (27.0-32.0) pg MCHC (31.0-37.0) g/dL RDW Std Deviation (28.0-62.0) fl RDW Coeff of Srinivas (11.0-15.0) % Plt Count (150-400) K/uL MPV (7.40-12.00) fL Neut % (Auto) (48.0-80.0) % Lymph % (Auto) (16.0-40.0) % Sharkey % (Auto) (0.0-15.0) % Eos % (Auto) (0.0-7.0) % Baso % (Auto) (0.0-1.5) % Neut # (Auto) (1.4-5.7) K/uL Lymph # (Auto) (0.6-2.4) K/uL Sharkey # (Auto) (0.0-0.8) K/uL Eos # (Auto) (0.0-0.7) K/uL Baso # (Auto) (0.0-0.1) K/uL Nucleated RBC % /100WBC Nucleated RBCs # K/uL APTT 24.5 (18.6-31.3) SEC Sodium (136-145) mmol/L Potassium (3.5-5.1) mmol/L Chloride (98-107) mmol/L Carbon Dioxide (21.0-32.0) mmol/L BUN (7.0-18.0) mg/dL Creatinine (0.6-1.0) mg/dL Est Cr Clr Drug Dosing mL/min Estimated GFR (MDRD) ml/min Glucose (74-106) mg/dL Calcium (8.5-10.1) mg/dL Free T4 (0.76-1.46) ng/dL TSH 3rd Generation (0.36-3.74) uIU/mL Result Diagrams: 11/23/20 08:18 11/23/20 08:18 Sepsis Event Note - Evaluation Sepsis Screening Result: No Definite Risk - Focused Exam Vital Signs: Vital Signs Temp Pulse Resp BP Pulse Ox 11/23/20 10:40 131 H 11/23/20 10:23 169 H 119/90 95 11/23/20 09:54 160 H 134/81 98 11/23/20 08:55 139 H 141/70 H 98 11/23/20 07:10 96.7 F L 90 18 141/79 H 93 L - Problem List (1) Acute bronchitis SNOMED Code(s): 45395940 ICD Code: J20.9 - ACUTE BRONCHITIS, UNSPECIFIED Status: Acute Current Visit: Yes (2) Atrial fibrillation with rapid ventricular response SNOMED Code(s): 500600304964218 ICD Code: I48.91 - UNSPECIFIED ATRIAL FIBRILLATION Status: Acute Current Visit: Yes (3) Cough SNOMED Code(s): 04272821 ICD Code: R05 - COUGH Status: Acute Current Visit: No Problem List Initiated/Reviewed/Updated: Yes Orders Last 24hrs: Active Orders 24 hr Category Date Time Status Admission Status [Patient Status] [ADT] Stat ADT 11/23/20 11:12 Active EKG 12 Lead [EKG Documentation Completion] [RC] STAT Care 11/23/20 07:23 Act berenice RT Aerosol Therapy [RC] ASDIRECTED Care 11/23/20 07:46 Active RT Aerosol Therapy [RC] ASDIRECTED Care 11/23/20 07:47 Active RT Aerosol Therapy [RC] ASDIRECTED Care 11/23/20 07:48 Active RT Aerosol Therapy [RC] ASDIRECTED Care 11/23/20 07:53 Active RT Aerosol Therapy [RC] ASDIRECTED Care 11/23/20 11:34 Active RT Post Treatment Assessment [RC] Click to Edit Care 11/23/20 07:46 Active RT Post Treatment Assessment [RC] Click to Edit Care 11/23/20 07:47 Active RT Post Treatment Assessment [RC] Click to Edit Care 11/23/20 07:48 Active RT Pre-Treatment Assessment [RC] Click to Edit Care 11/23/20 07:46 Active RT Pre-Treatment Assessment [RC] Click to Edit Care 11/23/20 07:47 Active RT Pre-Treatment Assessment [RC] Click to Edit Care 11/23/20 07:48 Active PTT,PARTIAL THROMBOPLSTIN TIME [COAG] Q6H Lab 11/23/20 11:15 Ordered PTT,PARTIAL THROMBOPLSTIN TIME [COAG] Q6H Lab 11/23/20 17:15 Ordered PTT,PARTIAL THROMBOPLSTIN TIME [COAG] Q6H Lab 11/23/20 23:15 Ordered PTT,PARTIAL THROMBOPLSTIN TIME [COAG] Q6H Lab 11/24/20 05:15 Ordered PTT,PARTIAL THROMBOPLSTIN TIME [COAG] Q6H Lab 11/24/20 11:15 Ordered PTT,PARTIAL THROMBOPLSTIN TIME [COAG] Q6H Lab 11/24/20 17:15 Ordered PTT,PARTIAL THROMBOPLSTIN TIME [COAG] Q6H Lab 11/24/20 23:15 Ordered TROPONIN I [CHEM] Stat Lab 11/23/20 11:51 Ordered Diltiazem [Cardizem] 100 mg Med 11/23/20 11:00 Active Sodium Chloride 0.9% [Normal Saline] 100 ml IV NOW Heparin Sodium/0.45% NaCl [Heparin 25,000 Units in 1/2 Med 11/23/20 11:15 Active NS 500 ML] 500 ml IV TITRATE Sodium Chloride 0.9% [Normal Saline] 500 ml Med 11/23/20 08:00 Active IV .BOLUS Medication Orders Sodium Chloride (Normal Saline) 500 mls @ 500 mls/hr IV .BOLUS HUGO Last Admin: 11/23/20 08:23 Dose: 500 mls/hr Documented by: CORNELL Diltiazem HCl 100 mg/ Sodium (Chloride) 100 mls @ 5 mls/hr IV NOW HUGO; Protocol Last Admin: 11/23/20 10:59 Dose: 5 mg/hr, 5 mls/hr Documented by: CORNELL Heparin Sodium/Sodium Chloride (Heparin 25,000 Units In 1/2 Ns 500 Ml) 500 mls @ 21.228 mls/hr IV TITRATE HUGO; Protocol Assessment/Plan Comment:: Assessment: 1. Dyspnea/wheezing in setting of possible bronchitis versus COPD-exacerbation versus Covid pneumonia 2. New onset atrial fibrillation with RVR 3. Hx of COVID Plan Admit to inpatient. Full code. I's and O's per routine vitals per routine Up ad vinicius. DVT: heparin gtt 1. A.fib RVR: new onset afib; no CP, will add on a troponin troponin negative Diltaizem gtt for rate control; continue to monitor ; can consider Digoxin if not rate controlled Heparin gtt; may consider ASA thereafter; switch to full dose Lovenox once HR controlled x 6 hours ; may consider ASA at discharge (CHADS-VASC:1) Endorsed having chronic high heart rate /subjective; unsure if this was pursued in outpatient setting CTA negative from 11-19-2020; Not requiring supplemental o2 and denies SOB, l.e swelling etc Per ED : provider discussed EKG findings and pt. w. Dr Meyers of [place]; recom mended full dose anticoagulation and diltiazem evelin TOLENTINO-VASC : 1 (sex/female) ; heparin gtt/diltiazem Wheezing/Acute bronchitis/possible COPD exacerbation: Continue Combivent HUGO q 4hrs ; Duo-nebs PRN q 3 hrs and supplemental o2 PRN (not requiring o2 at this time). Resp care consulted. COVID+ on 11-09-2020: not requiring supplemental o2; not a candidate for remdesevir will continue solumedrol 40 q 8hrs for now; monitor respiratory status CXR: similar patchy opacities predominantly right midlung concerning for COVID- 19 Start azithromycin and CTX for possible superimposed bacterial infection 500 cc/ns 1 time now ; continue to monitor volume/respiratory status PMH: none
[2020-11-23] MEDS: Heparin Sodium/0.45% NaCl 500 ML IV SCH (12:02)
[2020-11-23] MEDS ORDERED: Acetaminophen 325 MG Tab PO PRN (12:39)
[2020-11-23] MEDS ORDERED: Lactated Ringers 500 ML IV ONE (12:39)
[2020-11-23] MEDS ORDERED: Albuterol/Ipratropium 3.0-0.5 MG/3 ML Neb Soln NEB PRN (12:42)
[2020-11-23] MEDS: Albuterol/Ipratropium 4 GM Inhalation Spray INH SCH ×3 (13:27→20:04)
[2020-11-23] MEDS: methylPREDNISolone Sodium Succinate 40 MG/1 ML SDV IVPUSH SCH ×2 (13:29→20:03)
[2020-11-23] MEDS ORDERED: Azithromycin 100 MG/5 ML Susp 15 ML Bottle PO SCH (13:30)
[2020-11-23] MEDS: Azithromycin 250 MG Tab PO SCH (13:56)
[2020-11-23] MEDS: cefTRIAXone 1 GM in Premix Bag 1 BAG IV SCH (13:57)
--- NOTE | 2020-11-23 14:21 | PN ---
[facility] Physician - Brief Progress [id number]/15/2021 14:09[facility] [place], [place] - [place] ([place]) - RAS ARANZA BROWNING, COVID+Date of Service 11/23/2020 14:09 HPI/Events of Note eICU admission [id number] female with no significant past medical history pre sented to hospital with shortness of breath. Patient mention she developed shortness of breath aroun d November 03 at which time she was diagnosed with COVID-19 and 1 week prior to this admission patient p resent to the ED and was prescribed azithromycin and prednisone which she completed 2 days prior to t his admission. She is developed progressively worsening shortness of breath with associated cough an d wheezing during the last 48 hours thus presented to the ED for further evaluation. On arrival to he ED patient was noted to be significantly tachypneic requiring multiple duo nebs and EKG done for t achycardia did reveal A. fib with RVR. Patient was initiated on Cardizem gtt. as well as heparin gtt . and admitted to the ICU for further management.Patient seen on camera, sitting up in bed, does not appear to be in acute distress at this time and speaking in complete sentences.Vital signs reviewedLa b/EMR reviewedA. fib with RVR-Can consider obtaining directed TSH, troponin and lytes. -Recommend con tinuing Cardizem gtt. at this time until heart rate is controlled less than 100 then transition to p. o. AV trisha blockers.-Anticoagulation initiated with heparin GTT-Recommend replacing electrolytes to keep MG > 2 and K > 4-Given new onset A. fib will also need 2D echo.Shortness of breath-Unclear if iglesia walker has underlying COPD given significant history of smoking-Agree with scheduled nebs at this time -Recommend Solu-Medrol 40 daily and if she has significant work of breathing or does not improve with current management then more frequent Solu-Medrol dosing will likely be needed.-Agree with azithromy carlos again for presumed COPD-Recommend respiratory viral panel/PCR if not already done for other viral etiologies of dyspnea.Thank you for allowing us to participate in the care of this patient. Unless o therwise specified defer implementation of above recommendations to bedside provider. Please do not h esitate to contact eICU for any questions, clarification or assistance with implementation of above.I nterventions Major-Arrhythmia - evaluation and management
[2020-11-23] MEDS: guaiFENesin/Dextromethorphan 100-10 MG/5 ML Soln 10 ML Cup PO PRN ×2 (15:11→21:18)
[2020-11-23] MEDS ORDERED: Heparin Sodium 5,000 Units/ML Vial IVPUSH ONE ×2 (18:10→23:40)
[2020-11-23] MEDS: Metoprolol Tartrate 25 MG Tab PO SCH (20:03)
[2020-11-24] MEDS: Albuterol/Ipratropium 4 GM Inhalation Spray INH SCH ×6 (00:06→19:52)
[2020-11-24] MEDS ORDERED: Melatonin 3 MG Tab PO PRN (00:28)
[2020-11-24] MEDS: guaiFENesin/Dextromethorphan 100-10 MG/5 ML Soln 10 ML Cup PO PRN ×3 (03:18→19:52)
[2020-11-24] MEDS: methylPREDNISolone Sodium Succinate 40 MG/1 ML SDV IVPUSH SCH (05:11)
[2020-11-24 05:35] LABS: HEMOGLOBIN A1C 5.6 %
[2020-11-24 05:39] LABS: BLOOD UREA NITROGEN,BUN 10 mg/dL (7.0-18.0); CARBON DIOXIDE,CO2 23.6 mmol/L (21.0-32.0); CHLORIDE,CL 106 mmol/L (98-107); GLUCOSE RANDOM 153 mg/dL (74-106); POTASSIUM,K 4.4 mmol/L (3.5-5.1); SODIUM,NA 140 mmol/L (136-145)
[2020-11-24] MEDS ORDERED: Heparin Sodium 5,000 Units/ML Vial IVPUSH ONE (05:43)
[2020-11-24] MEDS: Heparin Sodium/0.45% NaCl 500 ML IV SCH ×2 (07:15→19:52)
[2020-11-24] MEDS: Metoprolol Tartrate 25 MG Tab PO SCH (08:26)
[2020-11-24 08:27] VITALS: PULSE 115
--- NOTE | 2020-11-24 12:03 | PCM.PN ---
- General Info Date of Service: 11/24/20 - Review of Systems Systems Review Comment:: feeling better, no palpitations, shortness of breath has improved. - Patient Data Vitals - Most Recent: Last Vital Signs Temp 36.7 C 11/24/20 11:00 Pulse 115 H 11/24/20 08:26 Resp 22 H 11/24/20 11:00 BP 109/74 11/24/20 11:00 Pulse Ox 91 L 11/24/20 11:00 Weight - Most Recent: 87.589 kg I&O - Last 24 Hours: Intake & Output 11/23/20 11/24/20 11/24/20 22:59 06:59 14:59 Intake Total 600 1917 Output Total 1100 1700 Balance -500 217 Lab Results Last 24 Hours: Laboratory Results - last 24 hr 11/23/20 11/23/20 11/23/20 Range/Units 11:27 11:27 17:26 WBC (4.0-11.0) K/uL RBC (4.30-5.90) M/uL Hgb (12.0-16.0) g/dL Hct (36.0-46.0) % MCV (80.0-98.0) fL MCH (27.0-32.0) pg MCHC (31.0-37.0) g/dL RDW Std Deviation (28.0-62.0) fl RDW Coeff of Srinivas (11.0-15.0) % Plt Count (150-400) K/uL MPV (7.40-12.00) fL Neut % (Auto) (48.0-80.0) % Lymph % (Auto) (16.0-40.0) % [place] % (Auto) (0.0-15.0) % Eos % (Auto) (0.0-7.0) % Baso % (Auto) (0.0-1.5) % Neut # (Auto) (1.4-5.7) K/uL Lymph # (Auto) (0.6-2.4) K/uL [place] # (Auto) (0.0-0.8) K/uL Eos # (Auto) (0.0-0.7) K/uL Baso # (Auto) (0.0-0.1) K/uL Nucleated RBC % /100WBC Nucleated RBCs # K/uL APTT 24.1 (18.6-31.3) SEC Sodium (136-145) mmol/L Potassium (3.5-5.1) mmol/L Chloride (98-107) mmol/L Carbon Dioxide (21.0-32.0) mmol/L BUN (7.0-18.0) mg/dL Creatinine (0.6-1.0) mg/dL Est Cr Clr Drug Dosing mL/min Estimated GFR (MDRD) ml/min Glucose (74-106) mg/dL Hemoglobin A1c (4.5 - 6.2) % Calcium (8.5-10.1) mg/dL Phosphorus 3.9 (2.6-4.7) mg/dL Magnesium 2.7 H (1.8-2.4) mg/dL Total Bilirubin (0.2-1.0) mg/dL AST (15-37) IU/L ALT (14-63) IU/L Alkaline Phosphatase (46-116) U/L Troponin I < 0.050 (0.000-0.056) ng/mL Total Protein (6.4-8.2) g/dL Albumin (3.4-5.0) g/dL Globulin (2.6-4.0) g/dL Albumin/Globulin Ratio (0.9-1.6) Triglycerides (0-200) mg/dL Cholesterol (50-200) mg/dL LDL Cholesterol, Calc (60-180) mg/dL VLDL Cholesterol (5-55) mg/dL HDL Cholesterol (40-60) mg/dL Cholesterol/HDL Ratio (3.3-6.0) 11/23/20 11/24/20 11/24/20 Range/Units 23:15 05:15 05:15 WBC 14.63 H (4.0-11.0) K/uL RBC 4.46 (4.30-5.90) M/uL Hgb 13.8 (12.0-16.0) g/dL Hct 41.7 (36.0-46.0) % MCV 93.5 (80.0-98.0) fL MCH 30.9 (27.0-32.0) pg MCHC 33.1 (31.0-37.0) g/dL RDW Std Deviation 48.8 (28.0-62.0) fl RDW Coeff of Srinivas 15 (11.0-15.0) % Plt Count 528 H (150-400) K/uL MPV 8.80 (7.40-12.00) fL Neut % (Auto) 90.0 H (48.0-80.0) % Lymph % (Auto) 8.1 L (16.0-40.0) % [place] % (Auto) 1.8 (0.0-15.0) % Eos % (Auto) 0.0 (0.0-7.0) % Baso % (Auto) 0.1 (0.0-1.5) % Neut # (Auto) 13.2 H (1.4-5.7) K/uL Lymph # (Auto) 1.2 (0.6-2.4) K/uL [place] # (Auto) 0.3 (0.0-0.8) K/uL Eos # (Auto) 0.0 (0.0-0.7) K/uL Baso # (Auto) 0.0 (0.0-0.1) K/uL Nucleated RBC % 0.0 /100WBC Nucleated RBCs # 0 K/uL APTT 36.2 H 46.6 H (18.6-31.3) SEC Sodium (136-145) mmol/L Potassium (3.5-5.1) mmol/L Chloride (98-107) mmol/L Carbon Dioxide (21.0-32.0) mmol/L BUN (7.0-18.0) mg/dL Creatinine (0.6-1.0) mg/dL Est Cr Clr Drug Dosing mL/min Estimated GFR (MDRD) ml/min Glucose (74-106) mg/dL Hemoglobin A1c (4.5 - 6.2) % Calcium (8.5-10.1) mg/dL Phosphorus (2.6-4.7) mg/dL Magnesium (1.8-2.4) mg/dL Total Bilirubin (0.2-1.0) mg/dL AST (15-37) IU/L ALT (14-63) IU/L Alkaline Phosphatase (46-116) U/L Troponin I (0.000-0.056) ng/mL Total Protein (6.4-8.2) g/dL Albumin (3.4-5.0) g/dL Globulin (2.6-4.0) g/dL Albumin/Globulin Ratio (0.9-1.6) Triglycerides (0-200) mg/dL Cholesterol (50-200) mg/dL LDL Cholesterol, Calc (60-180) mg/dL VLDL Cholesterol (5-55) mg/dL HDL Cholesterol (40-60) mg/dL Cholesterol/HDL Ratio (3.3-6.0) 11/24/20 11/24/20 11/24/20 Range/Units 05:15 05:15 11:18 WBC (4.0-11.0) K/uL RBC (4.30-5.90) M/uL Hgb (12.0-16.0) g/dL Hct (36.0-46.0) % MCV (80.0-98.0) fL MCH (27.0-32.0) pg MCHC (31.0-37.0) g/dL RDW Std Deviation (28.0-62.0) fl RDW Coeff of Srinivas (11.0-15.0) % Plt Count (150-400) K/uL MPV (7.40-12.00) fL Neut % (Auto) (48.0-80.0) % Lymph % (Auto) (16.0-40.0) % [place] % (Auto) (0.0-15.0) % Eos % (Auto) (0.0-7.0) % Baso % (Auto) (0.0-1.5) % Neut # (Auto) (1.4-5.7) K/uL Lymph # (Auto) (0.6-2.4) K/uL [place] # (Auto) (0.0-0.8) K/uL Eos # (Auto) (0.0-0.7) K/uL Baso # (Auto) (0.0-0.1) K/uL Nucleated RBC % /100WBC Nucleated RBCs # K/uL APTT 52.1 H (18.6-31.3) SEC Sodium 140 (136-145) mmol/L Potassium 4.4 (3.5-5.1) mmol/L Chloride 106 (98-107) mmol/L Carbon Dioxide 23.6 (21.0-32.0) mmol/L BUN 10 (7.0-18.0) mg/dL Creatinine 0.5 L (0.6-1.0) mg/dL Est Cr Clr Drug Dosing 137.55 mL/min Estimated GFR (MDRD) > 60.0 ml/min Glucose 153 H (74-106) mg/dL Hemoglobin A1c 5.6 (4.5 - 6.2) % Calcium 7.9 L (8.5-10.1) mg/dL Phosphorus (2.6-4.7) mg/dL Magnesium 2.4 (1.8-2.4) mg/dL Total Bilirubin 0.6 (0.2-1.0) mg/dL AST 6 L (15-37) IU/L ALT 26 (14-63) IU/L Alkaline Phosphatase 46 (46-116) U/L Troponin I (0.000-0.056) ng/mL Total Protein 6.4 (6.4-8.2) g/dL Albumin 3.0 L (3.4-5.0) g/dL Globulin 3.4 (2.6-4.0) g/dL Albumin/Globulin Ratio 0.9 (0.9-1.6) Triglycerides 44 (0-200) mg/dL Cholesterol 176 (50-200) mg/dL LDL Cholesterol, Calc 83 (60-180) mg/dL VLDL Cholesterol 8 (5-55) mg/dL HDL Cholesterol 84 H (40-60) mg/dL Cholesterol/HDL Ratio 2.1 L (3.3-6.0) Med Orders - Current: Current Medications Acetaminophen (Acetaminophen 325 Mg Tab) 650 mg PO Q4H PRN PRN Reason: Pain (Mild 1-3)/fever Albuterol/Ipratropium (Albuterol/Ipratropium 4 Gm Inhalation [place]) 0 gm INH Q4H [facility] Last Admin: 11/24/20 08:26 Dose: 1 puff Documented by: Albuterol/Ipratropium (Albuterol/Ipratropium 3.0-0.5 Mg/3 Ml Neb Soln) 3 ml NEB Q3H PRN PRN Reason: Shortness of Breath Azithromycin (Azithromycin 250 Mg Tab) 500 mg PO Q24H [facility] Last Admin: 11/23/20 13:56 Dose: 500 mg Documented by: Diltiazem HCl (Diltiazem Ir 30 Mg Tab) 30 mg PO Q6HR [facility] Guaifenesin/Dextromethorphan (Guaifenesin/Dextromethorphan 100-10 Mg/5 Ml Soln 10 Ml Cup) 10 ml PO Q4H PRN PRN Reason: Cough Last Admin: 11/24/20 03:18 Dose: 10 ml Documented by: Sodium Chloride (Normal Saline) 500 mls @ 500 mls/hr IV .BOLUS [facility] Last Admin: 11/23/20 08:23 Dose: 500 mls/hr Documented by: Heparin Sodium/Sodium Chloride (Heparin 25,000 Units In 1/2 Ns 500 Ml) 500 mls @ 21.228 mls/hr IV TITRATE [facility]; Protocol Last Admin: 11/24/20 07:15 Dose: 20 units/kg/hr, 35.38 mls/hr Documented by: Ceftriaxone Sodium/Dextrose 1 (gm/ Premix) 50 mls @ 100 mls/hr IV Q24H [facility] Last Admin: 11/23/20 13:57 Dose: 100 mls/hr Documented by: Diltiazem HCl 100 mg/ Sodium (Chloride) 100 mls @ 15 mls/hr IV NOW [facility]; Protocol Last Titration: 11/24/20 00:11 Dose: 0 mg/hr, 0 mls/hr Documented by: Melatonin (Melatonin 3 Mg Tab) 6 mg PO BEDTIME PRN PRN Reason: Insomnia Last Admin: 11/24/20 00:41 Dose: 6 mg Documented by: Prednisone (Prednisone 20 Mg Tab) 40 mg PO WITHBREAKFAST [facility] Discontinued Medications Albuterol (Albuterol 0.083% 2.5 Mg/3 Ml Neb Soln) 5 mg NEB ONETIME STA Stop: 11/23/20 07:46 Last Admin: 11/23/20 08:00 Dose: Not Given Documented by: Albuterol (Albuterol 0.083% 2.5 Mg/3 Ml Neb Soln) 5 mg NEB ONETIME HUGO Albuterol (Albuterol 0.083% 2.5 Mg/3 Ml Neb Soln) 5 mg NEB ONETIME ONE Stop: 11/23/20 08:21 Albuterol (Albuterol 0.083% 2.5 Mg/3 Ml Neb Soln) Confirm Administered Dose 2.5 mg .ROUTE .STK-MED ONE Stop: 11/23/20 07:53 Last Admin: 11/23/20 07:58 Dose: Not Given Documented by: Albuterol (Albuterol 0.083% 2.5 Mg/3 Ml Neb Soln) 2.5 mg NEB Q20M [facility] Stop: 11/23/20 08:34 Last Admin: 11/23/20 08:39 Dose: 2.5 mg Documented by: Albuterol (Albuterol 0.083% 2.5 Mg/3 Ml Neb Soln) 5 mg NEB ONETIME STA Stop: 11/23/20 11:35 Last Admin: 11/23/20 12:12 Dose: 5 mg Documented by: Albuterol/Ipratropium (Albuterol/Ipratropium 3.0-0.5 Mg/3 Ml Neb Soln) Confirm Administered Dose 3 ml .ROUTE .STK-MED ONE Stop: 11/23/20 07:53 Last Admin: 11/23/20 07:58 Dose: Not Given Documented by: Albuterol/Ipratropium (Albuterol/Ipratropium 3.0-0.5 Mg/3 Ml Neb Soln) 3 ml NEB Q20M [facility] Stop: 11/23/20 08:34 Last Admin: 11/23/20 08:39 Dose: 3 ml Documented by: Azithromycin (Azithromycin 100 Mg/5 Ml Susp 15 Ml Bottle) 500 mg PO Q24H [facility] Diltiazem HCl (Diltiazem 25 Mg/5 Ml Sdv) 25 mg IVPUSH ONETIME ONE Stop: 11/23/20 10:23 Last Admin: 11/23/20 10:28 Dose: 25 mg Documented by: Diltiazem HCl (Diltiazem 25 Mg/5 Ml Sdv) 20 mg IVPUSH ONETIME ONE Stop: 11/23/20 10:47 Last Admin: 11/23/20 10:50 Dose: 20 mg Documented by: Diltiazem HCl (Diltiazem 25 Mg/5 Ml Sdv) 5 mg IVPUSH ONETIME ONE Stop: 11/23/20 13:16 Last Admin: 11/23/20 13:25 Dose: 5 mg Documented by: Heparin Sodium (Porcine) (Heparin Sodium 5,000 Units/Ml Vial) 2,000 units IVPUSH .BOLUS ONE Stop: 11/23/20 18:11 Last Admin: 11/23/20 18:23 Dose: 2,000 units Documented by: Heparin Sodium (Porcine) (Heparin Sodium 5,000 Units/Ml Vial) 1,000 units IVPUSH .BOLUS ONE Stop: 11/23/20 23:41 Last Admin: 11/23/20 23:52 Dose: 1,000 units Documented by: Heparin Sodium (Porcine) (Heparin Sodium 5,000 Units/Ml Vial) 1,000 units IVPUSH .BOLUS ONE Stop: 11/24/20 05:44 Last Admin: 11/24/20 06:04 Dose: 1,000 units Documented by: Magnesium Sulfate (Magnesium Sulfate In Water 2 Gm/50 Ml) 2 gm in 50 mls @ 25 mls/hr IV ASDIRECTED [facility] Stop: 11/23/20 09:59 Last Admin: 11/23/20 08:24 Dose: 25 mls/hr Documented by: Diltiazem HCl 100 mg/ Sodium (Chloride) 100 mls @ 5 mls/hr IV NOW [facility]; Protocol Last Titration: 11/23/20 13:15 Dose: 15 mg/hr, 15 mls/hr Documented by: Lactated Ringer's (Ringers, Lactated) 500 mls @ 999 mls/hr IV BOLUS ONE Stop: 11/23/20 13:09 Last Admin: 11/23/20 13:20 Dose: 999 mls/hr Documented by: Ipratropium [place] (Ipratropium 0.02% 0.5 Mg/2.5 Ml Neb Soln) 0.5 mg NEB ONETIME ONE Stop: 11/23/20 07:46 Last Admin: 11/23/20 08:00 Dose: Not Given Documented by: Ipratropium [place] (Ipratropium 0.02% 0.5 Mg/2.5 Ml Neb Soln) 0.5 mg NEB ONETIME ONE Stop: 11/23/20 08:06 Ipratropium [place] (Ipratropium 0.02% 0.5 Mg/2.5 Ml Neb Soln) 0.5 mg NEB ONETIME ONE Stop: 11/23/20 08:21 Lidocaine HCl (Lidocaine 4% 5 Ml Amp) 5 ml NEB ONETIME ONE Stop: 11/23/20 07:50 Last Admin: 11/23/20 08:28 Dose: Not Given Documented by: Lidocaine HCl (Lidocaine 1% Pf 2 Ml Sdv) 2 ml INJECT ONETIME ONE Stop: 11/23/20 08:27 Last Admin: 11/23/20 08:35 Dose: 2 ml Documented by: Methylprednisolone Sodium Succinate (Methylprednisolone Sodium Succinate 40 Mg/1 Ml Sdv) 40 mg IVPUSH Q8H [facility] Last Admin: 11/24/20 05:11 Dose: 40 mg Documented by: Metoprolol Tartrate (Metoprolol Tartrate 25 Mg Tab) 25 mg PO Q12HR [facility] Last Admin: 11/24/20 08:26 Dose: 25 mg Documented by: Prednisone (Prednisone 20 Mg Tab) 60 mg PO NOW STA Stop: 11/23/20 11:26 Last Admin: 11/23/20 11:59 Dose: 60 mg Documented by: - Exam General: Alert, Oriented Neck: Supple Lungs: Clear to Auscultation Cardiovascular: Regular Rate, Irregular Rhythm GI/Abdominal Exam: Soft, Non-Tender, No Distention Extremities: Non-Tender, No Pedal Edema Skin: Warm, Dry, Intact Neurological: No New Focal Deficit - Patient Data Lab Results Last 24 hrs: Laboratory Results - last 24 hr 11/23/20 11/23/20 11/23/20 Range/Units 11:27 11:27 17:26 WBC (4.0-11.0) K/uL RBC (4.30-5.90) M/uL Hgb (12.0-16.0) g/dL Hct (36.0-46.0) % MCV (80.0-98.0) fL MCH (27.0-32.0) pg MCHC (31.0-37.0) g/dL RDW Std Deviation (28.0-62.0) fl RDW Coeff of Srinivas (11.0-15.0) % Plt Count (150-400) K/uL MPV (7.40-12.00) fL Neut % (Auto) (48.0-80.0) % Lymph % (Auto) (16.0-40.0) % [place] % (Auto) (0.0-15.0) % Eos % (Auto) (0.0-7.0) % Baso % (Auto) (0.0-1.5) % Neut # (Auto) (1.4-5.7) K/uL Lymph # (Auto) (0.6-2.4) K/uL [place] # (Auto) (0.0-0.8) K/uL Eos # (Auto) (0.0-0.7) K/uL Baso # (Auto) (0.0-0.1) K/uL Nucleated RBC % /100WBC Nucleated RBCs # K/uL APTT 24.1 (18.6-31.3) SEC Sodium (136-145) mmol/L Potassium (3.5-5.1) mmol/L Chloride (98-107) mmol/L Carbon Dioxide (21.0-32.0) mmol/L BUN (7.0-18.0) mg/dL Creatinine (0.6-1.0) mg/dL Est Cr Clr Drug Dosing mL/min Estimated GFR (MDRD) ml/min Glucose (74-106) mg/dL Hemoglobin A1c (4.5 - 6.2) % Calcium (8.5-10.1) mg/dL Phosphorus 3.9 (2.6-4.7) mg/dL Magnesium 2.7 H (1.8-2.4) mg/dL Total Bilirubin (0.2-1.0) mg/dL AST (15-37) IU/L ALT (14-63) IU/L Alkaline Phosphatase (46-116) U/L Troponin I < 0.050 (0.000-0.056) ng/mL Total Protein (6.4-8.2) g/dL Albumin (3.4-5.0) g/dL Globulin (2.6-4.0) g/dL Albumin/Globulin Ratio (0.9-1.6) Triglycerides (0-200) mg/dL Cholesterol (50-200) mg/dL LDL Cholesterol, Calc (60-180) mg/dL VLDL Cholesterol (5-55) mg/dL HDL Cholesterol (40-60) mg/dL Cholesterol/HDL Ratio (3.3-6.0) 11/23/20 11/24/20 11/24/20 Range/Units 23:15 05:15 05:15 WBC 14.63 H (4.0-11.0) K/uL RBC 4.46 (4.30-5.90) M/uL Hgb 13.8 (12.0-16.0) g/dL Hct 41.7 (36.0-46.0) % MCV 93.5 (80.0-98.0) fL MCH 30.9 (27.0-32.0) pg MCHC 33.1 (31.0-37.0) g/dL RDW Std Deviation 48.8 (28.0-62.0) fl RDW Coeff of Srinivas 15 (11.0-15.0) % Plt Count 528 H (150-400) K/uL MPV 8.80 (7.40-12.00) fL Neut % (Auto) 90.0 H (48.0-80.0) % Lymph % (Auto) 8.1 L (16.0-40.0) % [place] % (Auto) 1.8 (0.0-15.0) % Eos % (Auto) 0.0 (0.0-7.0) % Baso % (Auto) 0.1 (0.0-1.5) % Neut # (Auto) 13.2 H (1.4-5.7) K/uL Lymph # (Auto) 1.2 (0.6-2.4) K/uL [place] # (Auto) 0.3 (0.0-0.8) K/uL Eos # (Auto) 0.0 (0.0-0.7) K/uL Baso # (Auto) 0.0 (0.0-0.1) K/uL Nucleated RBC % 0.0 /100WBC Nucleated RBCs # 0 K/uL APTT 36.2 H 46.6 H (18.6-31.3) SEC Sodium (136-145) mmol/L Potassium (3.5-5.1) mmol/L Chloride (98-107) mmol/L Carbon Dioxide (21.0-32.0) mmol/L BUN (7.0-18.0) mg/dL Creatinine (0.6-1.0) mg/dL Est Cr Clr Drug Dosing mL/min Estimated GFR (MDRD) ml/min Glucose (74-106) mg/dL Hemoglobin A1c (4.5 - 6.2) % Calcium (8.5-10.1) mg/dL Phosphorus (2.6-4.7) mg/dL Magnesium (1.8-2.4) mg/dL Total Bilirubin (0.2-1.0) mg/dL AST (15-37) IU/L ALT (14-63) IU/L Alkaline Phosphatase (46-116) U/L Troponin I (0.000-0.056) ng/mL Total Protein (6.4-8.2) g/dL Albumin (3.4-5.0) g/dL Globulin (2.6-4.0) g/dL Albumin/Globulin Ratio (0.9-1.6) Triglycerides (0-200) mg/dL Cholesterol (50-200) mg/dL LDL Cholesterol, Calc (60-180) mg/dL VLDL Cholesterol (5-55) mg/dL HDL Cholesterol (40-60) mg/dL Cholesterol/HDL Ratio (3.3-6.0) 11/24/20 11/24/20 11/24/20 Range/Units 05:15 05:15 11:18 WBC (4.0-11.0) K/uL RBC (4.30-5.90) M/uL Hgb (12.0-16.0) g/dL Hct (36.0-46.0) % MCV (80.0-98.0) fL MCH (27.0-32.0) pg MCHC (31.0-37.0) g/dL RDW Std Deviation (28.0-62.0) fl RDW Coeff of Srinivas (11.0-15.0) % Plt Count (150-400) K/uL MPV (7.40-12.00) fL Neut % (Auto) (48.0-80.0) % Lymph % (Auto) (16.0-40.0) % [place] % (Auto) (0.0-15.0) % Eos % (Auto) (0.0-7.0) % Baso % (Auto) (0.0-1.5) % Neut # (Auto) (1.4-5.7) K/uL Lymph # (Auto) (0.6-2.4) K/uL [place] # (Auto) (0.0-0.8) K/uL Eos # (Auto) (0.0-0.7) K/uL Baso # (Auto) (0.0-0.1) K/uL Nucleated RBC % /100WBC Nucleated RBCs # K/uL APTT 52.1 H (18.6-31.3) SEC Sodium 140 (136-145) mmol/L Potassium 4.4 (3.5-5.1) mmol/L Chloride 106 (98-107) mmol/L Carbon Dioxide 23.6 (21.0-32.0) mmol/L BUN 10 (7.0-18.0) mg/dL Creatinine 0.5 L (0.6-1.0) mg/dL Est Cr Clr Drug Dosing 137.55 mL/min Estimated GFR (MDRD) > 60.0 ml/min Glucose 153 H (74-106) mg/dL Hemoglobin A1c 5.6 (4.5 - 6.2) % Calcium 7.9 L (8.5-10.1) mg/dL Phosphorus (2.6-4.7) mg/dL Magnesium 2.4 (1.8-2.4) mg/dL Total Bilirubin 0.6 (0.2-1.0) mg/dL AST 6 L (15-37) IU/L ALT 26 (14-63) IU/L Alkaline Phosphatase 46 (46-116) U/L Troponin I (0.000-0.056) ng/mL Total Protein 6.4 (6.4-8.2) g/dL Albumin 3.0 L (3.4-5.0) g/dL Globulin 3.4 (2.6-4.0) g/dL Albumin/Globulin Ratio 0.9 (0.9-1.6) Triglycerides 44 (0-200) mg/dL Cholesterol 176 (50-200) mg/dL LDL Cholesterol, Calc 83 (60-180) mg/dL VLDL Cholesterol 8 (5-55) mg/dL HDL Cholesterol 84 H (40-60) mg/dL Cholesterol/HDL Ratio 2.1 L (3.3-6.0) Result Diagrams: 11/24/20 05:15 11/24/20 05:15 Sepsis Event Note - Evaluation Sepsis Screening Result: No Definite Risk - Focused Exam Vital Signs: Vital Signs Temp Pulse Resp BP BP Pulse Ox 11/24/20 11:00 36.7 C 22 H 109/74 91 L 11/24/20 10:00 36.2 C 16 114/79 91 L 11/24/20 09:00 36.2 C 18 119/66 93 L 11/24/20 08:26 115 H 123/73 11/24/20 08:00 36.8 C 16 123/73 93 L 11/24/20 07:00 14 115/80 91 L 11/24/20 06:00 16 116/76 92 L 11/24/20 05:00 36.1 C 16 120/74 91 L 11/24/20 04:00 18 114/83 93 L 11/24/20 03:00 19 127/95 H 91 L 11/24/20 02:45 88 L 11/24/20 02:00 18 130/84 95 11/24/20 01:00 16 107/61 92 L 11/24/20 00:00 18 112/74 91 L - Problem List Review Problem List Initiated/Reviewed/Updated: Yes - My Orders Last 24 Hours: My Active Orders 11/24/20 12:00 Diltiazem IR [Cardizem] 30 mg PO Q6HR 11/25/20 08:00 predniSONE 40 mg PO WITHBREAKFAST - Plan Plan:: Assessment: 1. Dyspnea/wheezing in setting of possible bronchitis versus COPD-exacerbation versus Covid pneumonia 2. New onset atrial fibrillation with RVR 3. Hx of COVID 50 yo female admitted fro a.fib with RVR and reactive airway disease 1. a.fib, HR is 80s-120s off of diltaizem drip, will switch to oral diltiazem, heparin gtt started on admission, will likely d/c at discharge and start ASA 2.COPD exacerbation: received solumedrol this morning, will switch to daily prednisone, patient is on azithromycin and rocephin. Dispo: likely home tomorrow.
[2020-11-24] MEDS: Diltiazem IR 30 MG Tab PO SCH ×4 (12:53→23:45)
[2020-11-24] MEDS: Azithromycin 250 MG Tab PO SCH (12:53)
[2020-11-24] MEDS: cefTRIAXone 1 GM in Premix Bag 1 BAG IV SCH (12:54)
--- NOTE | 2020-11-24 18:14 | PN ---
THC Physician - Brief Progress [id number]/16/2021 18:09[facility] [place], [place] - RAS (DELMI) - ARANZA MILLER COVID+Date of Service 11/24/2020 18:09 HPI/Events of Note eICU progress [id number] female currently admitted to the ICU for A. fib with RVR as well as COPD exacerbation. Overnight patient did well and was able to be weaned off Cardizem gtt. this morning and transition to p.o. Cardizem 30 every 6 hours. Upon camera again this evening patient's heart rate has been ranging remained 120s to 140s while she is up in a chair currently on h er cell phone and does not appear to be in any distress at this time.Plan-We will increase p.o. Cardi zem to 60 every 6 at this time. If patient's heart rate does not get controlled with 60 mg then clement mmend reinitiating Cardizem gtt.-Patient has been transitioned from Solu-Medrol to p.o. prednisone fo r COPD laceration.-Can consider de-escalating from CAP coverage to azithromycin only.-Patient current ly on heparin GTT for anticoagulation will defer to primary team for switching to DOAC.Interventions Major-Arrhythmia - evaluation and managementElectronically Signed by: JOSE LEDESMA) on 021 18:13
[2020-11-25] MEDS: Albuterol/Ipratropium 4 GM Inhalation Spray INH SCH ×4 (01:04→12:19)
[2020-11-25] MEDS: Diltiazem IR 30 MG Tab PO SCH ×2 (05:10→12:19)
[2020-11-25] MEDS ORDERED: predniSONE 20 MG Tab PO SCH (08:00)
[2020-11-25 08:17] LABS: BLOOD UREA NITROGEN,BUN 16 mg/dL (7.0-18.0); CARBON DIOXIDE,CO2 23.7 mmol/L (21.0-32.0); CHLORIDE,CL 106 mmol/L (98-107); GLUCOSE RANDOM 96 mg/dL (74-106); POTASSIUM,K 3.9 mmol/L (3.5-5.1); SODIUM,NA 139 mmol/L (136-145)
[2020-11-25] MEDS ORDERED: Diltiazem IR 60 MG Tab PO SCH (12:00)
[2020-11-25 12:21] VITALS: BP 118/75
--- NOTE | 2020-11-25 12:27 | PCM.DCSUM1 ---
Discharge Summary - Hospital Course Free Text/Narrative:: This is a 50-year-old female with no stated past medical history presenting today for worsening dyspnea/wheezing in light of her history of recent Covid pneumonia. Endorses previous history of tobacco abuse x20 years with quitting 5 years prior. ED notes 50-year-old with a prior history of [id number] tobacco use who quit tobacco approximately 5 years ago and recent COVID-19 infection with symptom onset of November 03, 2020 who came to the emergency department with a chief complaint of shortness of breath. The patient states that approximately 1 week ago she was evaluated here in the emergency department and got a CT and was treated with steroids and then was discharged with azithromycin and prednisone. She states that with the azithromycin and the prednisone that her symptoms did improve however she finished her last dose of her steroids approximately 2 days ago and last night she started to experience worsening cough, wheezing, and shortness of breath. She states that the cough is nonproductive. She states that she has been using the albuterol inhaler at night approximately every 2 hours. She denies any history of asthma or COPD. She denies any chest pain, diaphoresis, syncope. She denies any other symptoms such as fever, chills, lower extremity edema, recent travel or recent surgery. ED course : received multiple doses of Duo-neb and one dose of IV magnesium to aid in respiratory status. EKG: AFIB w. RVR Vitals: Blood pressure: 141/70, pulse rate of 139, respiratory rate of 18 O2 saturation 98% room air. Labs CBC unremarkable CMP: TSH 0.06 Cardizem gtt started in light of afib x RVR Hospital course: : Patient was admitted to the ICU for A. fib with RVR as well as possible COPD exacerbation. Patient does not have a formal COPD diagnosis however (previous smoker x 10 years; quit x 5 years ) . Patient overnight on day of admission was eventually weaned off Cardizem drip and transitioned to p.o. Cardizem 30 every 6. Patient's heart rate however persisted at 1 20-1 40s and dosage of Cardizem was increased to 60 mg every 6 hours which better controlled the HR. Patient was having a more sustained rate control and patient was asymptomatic. Solu- Medrol had been transitioned to prednisone 40 daily and patient's medication has been titrated down to azithromycin only. [id number] score: 1. Decision to start patient at discharge on aspirin 81 mg daily plus Cardizem 120 CD twice daily. Since wheezing/cough and rapid ventricular rate were much improved and controlled patient was ultimately downgraded to the medical surgical floor and d ischarged the same afternoon. Patient's was advised to follow-up with primary care and to notify provider and or proceed to ED immediately if chest pain, shortness of breath or any new alarm symptoms develop. Patient was in agreement of plan and patient was discharged in stable condition. Patient was given 2 additional days of azithromycin to complete course, Cardizem p.o. and advised to take 81 mg of aspirin daily.pt also given a 14 days tapering dose of prednisone in light of her wheezing possible bronchitis vs COPD exacerbation Combivent was also advised to be used if wheezing/shortness of breath/cough develop. COVID + : advised to continue to quarantine per CDC guidelines Patient in stable condition. Patient discharged home. Primary care follow-up placed. - Discharge Data Discharge Date: 11/25/20 Discharge Disposition: Home, Self-Care 01 Condition: Stable - Referral to Home Health Primary Care Physician: Sil Shirley, DO - Discharge Diagnosis/Problem(s) (1) Acute bronchitis SNOMED Code(s): 51745464 ICD Code: J20.9 - ACUTE BRONCHITIS, UNSPECIFIED Status: Acute (2) Atrial fibrillation with rapid ventricular response SNOMED Code(s): 520425817625861 ICD Code: I48.91 - UNSPECIFIED ATRIAL FIBRILLATION Status: Acute (3) Cough SNOMED Code(s): 29935310 ICD Code: R05 - COUGH Status: Acute - Patient Summary/Data Consults: Consultations 11/23/20 12:39 Respiratory Care Assess and Treatment [CONS] Routine - Patient Instructions Diet: Heart Healthy Diet Notify Provider of: Fever, Nausea and/or Vomiting Other/Special Instructions: Follow up with your PCP as scheduled. Take the Cardizem twice daily ; if any side effects develop; please notify your PCP. YOur echocardiogram results will be sent to your PCP. USe the inhaler as needed. If you develop any chest pain, difficulty breathing or new alarming symptoms; please notify your provider or proceed to the ED immediately - Discharge Plan *PRESCRIPTION DRUG MONITORING PROGRAM REVIEWED*: No *COPY OF PRESCRIPTION DRUG MONITORING REPORT IN PATIENT LUIS: No Prescriptions/Med Rec: Aspirin [Adult Low Dose Aspirin EC] 81 mg PO DAILY 30 Days #30 tablet. predniSONE [Prednisone] 40 mg PO DAILY 7 Days #14 tablet predniSONE [Prednisone] 20 mg PO DAILY 7 Days #7 tablet Azithromycin [Zithromax] 250 mg PO Q24H 2 Days #2 tablet Home Medications: Home Meds Albuterol Sulfate [Albuterol Sulfate HFA] 1 - 2 inh INH ASDIRECTED PRN 11/23/20 [History] Aspirin [Adult Low Dose Aspirin EC] 81 mg PO DAILY 30 Days #30 tablet. 0 11/25/20 [Rx] Azithromycin [Zithromax] 250 mg PO Q24H 2 Days #2 tablet 11/25/20 [Rx] Dextromethorphan/guaiFENesin [Robitussin DM] 10 ml PO Q4H PRN cup 11/25/20 [Rx] predniSONE [Prednisone] 20 mg PO DAILY 7 Days #7 tablet 11/25/20 [Rx] predniSONE [Prednisone] 40 mg PO DAILY 7 Days #14 tablet 11/25/20 [Rx] Oxygen Therapy Mode: Room Air Patient Handouts: COVID-19 Vaccine Information, Azithromycin tablets, COVID-19: Quarantine vs. Isolation - [facility], Prednisone tablets, Diltiazem Oral Tablets, Atrial Fibrillation, [id number], Aspirin capsules or tablets extended release, Prevent the Spread of COVID-19 if You Are Sick - [facility] Referrals: Sil Shirley DO [Primary Care Provider] - 12/02/20 2:45 pm (nurse will call you once follow-up appointment date is obtained.) - Discharge Summary/Plan Comment DC Time >30 min.: No - Patient Data Vitals - Most Recent: Last Vital Signs Temp 97.8 F 11/25/20 12:00 Pulse 115 H 11/24/20 08:26 Resp 17 11/25/20 12:00 BP 118/75 11/25/20 12:00 Pulse Ox 93 L 11/25/20 12:00 Weight - Most Recent: 87.543 kg I&O - Last 24 hours: Intake & Output 11/24/20 11/25/20 11/25/20 22:59 06:59 14:59 Intake Total 1570 1331 Output Total 850 1600 Balance 720 -269 Lab Results - Last 24 hrs: Laboratory Results - last 24 hr 11/24/20 11/24/20 11/25/20 Range/Units 17:28 23:13 07:43 WBC 14.39 H (4.0-11.0) K/uL RBC 4.32 (4.30-5.90) M/uL Hgb 13.5 (12.0-16.0) g/dL Hct 40.8 (36.0-46.0) % MCV 94.4 (80.0-98.0) fL MCH 31.3 (27.0-32.0) pg MCHC 33.1 (31.0-37.0) g/dL RDW Std Deviation 51.0 (28.0-62.0) fl RDW Coeff of Srinivas 15 (11.0-15.0) % Plt Count 449 H (150-400) K/uL MPV 8.90 (7.40-12.00) fL Neut % (Auto) 64.6 (48.0-80.0) % Lymph % (Auto) 28.4 (16.0-40.0) % Wells % (Auto) 6.5 (0.0-15.0) % Eos % (Auto) 0.3 (0.0-7.0) % Baso % (Auto) 0.2 (0.0-1.5) % Neut # (Auto) 9.3 H (1.4-5.7) K/uL Lymph # (Auto) 4.1 H (0.6-2.4) K/uL Wells # (Auto) 0.9 H (0.0-0.8) K/uL Eos # (Auto) 0.1 (0.0-0.7) K/uL Baso # (Auto) 0.0 (0.0-0.1) K/uL Nucleated RBC % 0.0 /100WBC Nucleated RBCs # 0 K/uL APTT 51.0 H 54.1 H (18.6-31.3) SEC Sodium (136-145) mmol/L Potassium (3.5-5.1) mmol/L Chloride (98-107) mmol/L Carbon Dioxide (21.0-32.0) mmol/L BUN (7.0-18.0) mg/dL Creatinine (0.6-1.0) mg/dL Est Cr Clr Drug Dosing mL/min Estimated GFR (MDRD) ml/min Glucose (74-106) mg/dL Calcium (8.5-10.1) mg/dL Total Bilirubin (0.2-1.0) mg/dL AST (15-37) IU/L ALT (14-63) IU/L Alkaline Phosphatase (46-116) U/L Total Protein (6.4-8.2) g/dL Albumin (3.4-5.0) g/dL Globulin (2.6-4.0) g/dL Albumin/Globulin Ratio (0.9-1.6) 11/25/20 11/25/20 Range/Units 07:43 07:43 WBC (4.0-11.0) K/uL RBC (4.30-5.90) M/uL Hgb (12.0-16.0) g/dL Hct (36.0-46.0) % MCV (80.0-98.0) fL MCH (27.0-32.0) pg MCHC (31.0-37.0) g/dL RDW Std Deviation (28.0-62.0) fl RDW Coeff of Srinivas (11.0-15.0) % Plt Count (150-400) K/uL MPV (7.40-12.00) fL Neut % (Auto) (48.0-80.0) % Lymph % (Auto) (16.0-40.0) % Wells % (Auto) (0.0-15.0) % Eos % (Auto) (0.0-7.0) % Baso % (Auto) (0.0-1.5) % Neut # (Auto) (1.4-5.7) K/uL Lymph # (Auto) (0.6-2.4) K/uL Wells # (Auto) (0.0-0.8) K/uL Eos # (Auto) (0.0-0.7) K/uL Baso # (Auto) (0.0-0.1) K/uL Nucleated RBC % /100WBC Nucleated RBCs # K/uL APTT 59.7 H (18.6-31.3) SEC Sodium 139 (136-145) mmol/L Potassium 3.9 (3.5-5.1) mmol/L Chloride 106 (98-107) mmol/L Carbon Dioxide 23.7 (21.0-32.0) mmol/L BUN 16 (7.0-18.0) mg/dL Creatinine 0.7 (0.6-1.0) mg/dL Est Cr Clr Drug Dosing 98.25 mL/min Estimated GFR (MDRD) > 60.0 ml/min Glucose 96 (74-106) mg/dL Calcium 7.8 L (8.5-10.1) mg/dL Total Bilirubin 0.7 (0.2-1.0) mg/dL AST 8 L (15-37) IU/L ALT 24 (14-63) IU/L Alkaline Phosphatase 47 (46-116) U/L Total Protein 6.1 L (6.4-8.2) g/dL Albumin 2.9 L (3.4-5.0) g/dL Globulin 3.2 (2.6-4.0) g/dL Albumin/Globulin Ratio 0.9 (0.9-1.6) Med Orders - Current: Current Medications Acetaminophen (Acetaminophen 325 Mg Tab) 650 mg PO Q4H PRN PRN Reason: Pain (Mild 1-3)/fever Albuterol/Ipratropium (Albuterol/Ipratropium 4 Gm Inhalation Hasty) 0 gm INH Q4H [facility] Last Admin: 11/25/20 12:19 Dose: Not Given Documented by: Albuterol/Ipratropium (Albuterol/Ipratropium 3.0-0.5 Mg/3 Ml Neb Soln) 3 ml NEB Q3H PRN PRN Reason: Shortness of Breath Azithromycin (Azithromycin 250 Mg Tab) 500 mg PO Q24H [facility] Last Admin: 11/24/20 12:53 Dose: 500 mg Documented by: Diltiazem HCl (Diltiazem Ir 60 Mg Tab) 60 mg PO Q6H [facility] Last Admin: 11/25/20 12:11 Dose: 60 mg Documented by: Guaifenesin/Dextromethorphan (Guaifenesin/Dextromethorphan 100-10 Mg/5 Ml Soln 10 Ml Cup) 10 ml PO Q4H PRN PRN Reason: Cough Last Admin: 11/24/20 19:52 Dose: 10 ml Documented by: Sodium Chloride (Normal Saline) 500 mls @ 500 mls/hr IV .BOLUS HUGO Last Admin: 11/23/20 08:23 Dose: 500 mls/hr Documented by: Heparin Sodium/Sodium Chloride (Heparin 25,000 Units In 1/2 Ns 500 Ml) 500 mls @ 21.228 mls/hr IV TITRATE HUGO; Protocol Last Titration: 11/25/20 08:12 Dose: 20 units/kg/hr, 35.38 mls/hr Documented by: Diltiazem HCl 100 mg/ Sodium (Chloride) 100 mls @ 15 mls/hr IV NOW HUGO; P rotocol Last Titration: 11/24/20 00:11 Dose: 0 mg/hr, 0 mls/hr Documented by: Melatonin (Melatonin 3 Mg Tab) 6 mg PO BEDTIME PRN PRN Reason: Insomnia Last Admin: 11/24/20 00:41 Dose: 6 mg Documented by: Prednisone (Prednisone 20 Mg Tab) 40 mg PO WITHBREAKFAST HUGO Last Admin: 11/25/20 08:20 Dose: 40 mg Documented by: Discontinued Medications Albuterol (Albuterol 0.083% 2.5 Mg/3 Ml Neb Soln) 5 mg NEB ONETIME STA Stop: 11/23/20 07:46 Last Admin: 11/23/20 08:00 Dose: Not Given Documented by: Albuterol (Albuterol 0.083% 2.5 Mg/3 Ml Neb Soln) 5 mg NEB ONETIME HUGO Albuterol (Albuterol 0.083% 2.5 Mg/3 Ml Neb Soln) 5 mg NEB ONETIME ONE Stop: 11/23/20 08:21 Albuterol (Albuterol 0.083% 2.5 Mg/3 Ml Neb Soln) Confirm Administered Dose 2.5 mg .ROUTE .STK-MED ONE Stop: 11/23/20 07:53 Last Admin: 11/23/20 07:58 Dose: Not Given Documented by: Albuterol (Albuterol 0.083% 2.5 Mg/3 Ml Neb Soln) 2.5 mg NEB Q20M HUGO Stop: 11/23/20 08:34 Last Admin: 11/23/20 08:39 Dose: 2.5 mg Documented by: Albuterol (Albuterol 0.083% 2.5 Mg/3 Ml Neb Soln) 5 mg NEB ONETIME STA Stop: 11/23/20 11:35 Last Admin: 11/23/20 12:12 Dose: 5 mg Documented by: Albuterol/Ipratropium (Albuterol/Ipratropium 3.0-0.5 Mg/3 Ml Neb Soln) Confirm Administered Dose 3 ml .ROUTE .STK-MED ONE Stop: 11/23/20 07:53 Last Admin: 11/23/20 07:58 Dose: Not Given Documented by: Albuterol/Ipratropium (Albuterol/Ipratropium 3.0-0.5 Mg/3 Ml Neb Soln) 3 ml NEB Q20M [facility] Stop: 11/23/20 08:34 Last Admin: 11/23/20 08:39 Dose: 3 ml Documented by: Azithromycin (Azithromycin 100 Mg/5 Ml Susp 15 Ml Bottle) 500 mg PO Q24H [facility] Diltiazem HCl (Diltiazem 25 Mg/5 Ml Sdv) 25 mg IVPUSH ONETIME ONE Stop: 11/23/20 10:23 Last Admin: 11/23/20 10:28 Dose: 25 mg Documented by: Diltiazem HCl (Diltiazem 25 Mg/5 Ml Sdv) 20 mg IVPUSH ONETIME ONE Stop: 11/23/20 10:47 Last Admin: 11/23/20 10:50 Dose: 20 mg Documented by: Diltiazem HCl (Diltiazem 25 Mg/5 Ml Sdv) 5 mg IVPUSH ONETIME ONE Stop: 11/23/20 13:16 Last Admin: 11/23/20 13:25 Dose: 5 mg Documented by: Diltiazem HCl (Diltiazem Ir 30 Mg Tab) 30 mg PO Q6HR [facility] Last Admin: 11/24/20 19:09 Dose: Not Given Documented by: Diltiazem HCl (Diltiazem Ir 30 Mg Tab) 60 mg PO Q6HR [facility] Last Admin: 11/25/20 12:19 Dose: Not Given Documented by: Heparin Sodium (Porcine) (Heparin Sodium 5,000 Units/Ml Vial) 2,000 units IVPUSH .BOLUS ONE Stop: 11/23/20 18:11 Last Admin: 11/23/20 18:23 Dose: 2,000 units Documented by: Heparin Sodium (Porcine) (Heparin Sodium 5,000 Units/Ml Vial) 1,000 units IVPUSH .BOLUS ONE Stop: 11/23/20 23:41 Last Admin: 11/23/20 23:52 Dose: 1,000 units Documented by: Heparin Sodium (Porcine) (Heparin Sodium 5,000 Units/Ml Vial) 1,000 units IVPUSH .BOLUS ONE Stop: 11/24/20 05:44 Last Admin: 11/24/20 06:04 Dose: 1,000 units Documented by: Magnesium Sulfate (Magnesium Sulfate In Water 2 Gm/50 Ml) 2 gm in 50 mls @ 25 mls/hr IV ASDIRECTED [facility] Stop: 11/23/20 09:59 Last Admin: 11/23/20 08:24 Dose: 25 mls/hr Documented by: Diltiazem HCl 100 mg/ Sodium (Chloride) 100 mls @ 5 mls/hr IV NOW HUGO; Protocol Last Titration: 11/23/20 13:15 Dose: 15 mg/hr, 15 mls/hr Documented by: Lactated Ringer's (Ringers, Lactated) 500 mls @ 999 mls/hr IV BOLUS ONE Stop: 11/23/20 13:09 Last Admin: 11/23/20 13:20 Dose: 999 mls/hr Documented by: Ceftriaxone Sodium/Dextrose 1 (gm/ Premix) 50 mls @ 100 mls/hr IV Q24H [facility] Last Admin: 11/24/20 12:54 Dose: 100 mls/hr Documented by: Ipratropium [place] (Ipratropium 0.02% 0.5 Mg/2.5 Ml Neb Soln) 0.5 mg NEB ONETIME ONE Stop: 11/23/20 07:46 Last Admin: 11/23/20 08:00 Dose: Not Given Documented by: Ipratropium [place] (Ipratropium 0.02% 0.5 Mg/2.5 Ml Neb Soln) 0.5 mg NEB ONETIME ONE Stop: 11/23/20 08:06 Ipratropium [place] (Ipratropium 0.02% 0.5 Mg/2.5 Ml Neb Soln) 0.5 mg NEB ONETIME ONE Stop: 11/23/20 08:21 Lidocaine HCl (Lidocaine 4% 5 Ml Amp) 5 ml NEB ONETIME ONE Stop: 11/23/20 07:50 Last Admin: 11/23/20 08:28 Dose: Not Given Documented by: Lidocaine HCl (Lidocaine 1% Pf 2 Ml Sdv) 2 ml INJECT ONETIME ONE Stop: 11/23/20 08:27 Last Admin: 11/23/20 08:35 Dose: 2 ml Documented by: Methylprednisolone Sodium Succinate (Methylprednisolone Sodium Succinate 40 Mg/1 Ml Sdv) 40 mg IVPUSH Q8H [facility] Last Admin: 11/24/20 05:11 Dose: 40 mg Documented by: Metoprolol Tartrate (Metoprolol Tartrate 25 Mg Tab) 25 mg PO Q12HR [facility] Last Admin: 11/24/20 08:26 Dose: 25 mg Documented by: Prednisone (Prednisone 20 Mg Tab) 60 mg PO NOW STA Stop: 11/23/20 11:26 Last Admin: 11/23/20 11:59 Dose: 60 mg Documented by:
[2020-11-25] MEDS: Azithromycin 250 MG Tab PO SCH (12:41)
--- NOTE | 2020-11-26 12:22 | ECHO ---
EXAM DATE: 11/23/20 PATIENT'S AGE: 50 The ECHO report has been scanned into [employer] and can be seen in this patient's EMR (Electronic Medical Record) under the REPORTS section. The report has also been scanned into PACS. CAITLIN
== END 2020-11-25 13:00 | disposition home or self-care (01) | DRG 201 ==
LOC: MW.ED 06:57 → MW.ICU 11:12
PROVIDERS: ADMIT Student in an Organized Health Care Education/Training Program; ATTEND Student in an Organized Health Care Education/Training Program
DX: I48.91 Unspecified atrial fibrillation (principal); U07.1 COVID-19; J44.1 Chronic obstructive pulmonary disease with (acute) exacerbation; J20.9 Acute bronchitis, unspecified; J44.0 Chronic obstructive pulmonary disease with (acute) lower respiratory infection; Z79.52 Long term (current) use of systemic steroids; Z87.891 Personal history of nicotine dependence; Z79.82 Long term (current) use of aspirin; Z90.710 Acquired absence of both cervix and uterus; Z90.49 Acquired absence of other specified parts of digestive tract; Z98.890 Other specified postprocedural states
CPT/HCPCS: 36415; 71045; 71045-26; 80048; 80053; 80061; 83036; 83735; 84100; 84439; 84443; 84484; 85025; 85730; 93005; 93306; 94640; 96365; 96375; 96376; 99285-25; 99291; A9270-GY; J0696; J1644; J2920; J3475; J3490; J7040; J7120; J7620-GY

== ENCOUNTER 2021-10-31 20:36 | Emergency (ER) | payer BC | END 2021-10-31 20:56 | disposition left against medical advice (07) | LOC: MW.ED 20:36 | DX: Z53.21 Procedure and treatment not carried out due to patient leaving prior to being seen by health care provider (principal) ==

== ENCOUNTER 2021-11-01 06:06 | Emergency (ER) | payer BC ==
[2021-11-01] MEDS ORDERED: Albuterol 8 GM Inhaler INH STA (06:29)
[2021-11-01] MEDS ORDERED: Sodium Chloride 0.9% 10 ML Syringe FLUSH PRN (06:54)
[2021-11-01] MEDS ORDERED: Sodium Chloride 0.9% 2.5 ML Syringe FLUSH PRN (06:54)
[2021-11-01 07:48] LABS: BLOOD UREA NITROGEN,BUN 10 mg/dL (7.0-18.0); CARBON DIOXIDE,CO2 23.4 mmol/L (21.0-32.0); CHLORIDE,CL 102 mmol/L (98-107); GLUCOSE RANDOM 115 mg/dL (74-106); POTASSIUM,K 3.7 mmol/L (3.5-5.1); SODIUM,NA 136 mmol/L (136-145)
[2021-11-01] MEDS ORDERED: Sodium Chloride 0.9% 1,000 ML IV ONE (07:49)
[2021-11-01 08:02] LABS: CORONAVIRUS COVID-19 NAA NEGATIVE (NEGATIVE); INFLUENZA A NAA NEGATIVE (NEGATIVE); INFLUENZA B NAA NEGATIVE (NEGATIVE)
[2021-11-01 09:01] VITALS: BP 123/86; PULSE 110
[2021-11-01] MEDS ORDERED: Iopamidol 755 MG/ML 500 ML Multipack Bottle IVPUSH ONE (18:22)
== END 2021-11-01 09:07 | disposition home or self-care (01) ==
LOC: MW.ED 06:06
DX: R00.0 Tachycardia, unspecified (principal); R06.00 Dyspnea, unspecified; Z86.16 Personal history of COVID-19; Z90.49 Acquired absence of other specified parts of digestive tract; Z90.710 Acquired absence of both cervix and uterus; Z20.822 Contact with and (suspected) exposure to COVID-19
CPT/HCPCS: 0240U; 36415; 71045; 71275; 80053; 80305; 81003; 81025; 83880; 84443; 84484; 85025; 93005; 99285; A9270; J3490; J7030; Q9967

== ENCOUNTER 2024-08-24 11:42 | Emergency (ER) | payer BC ==
[2024-08-24 13:39] LABS: BASOPHILS PERCENT AUTO 1.3 % (0.0-1.0); EOSINOPHILS ABSOLUTE AUTO 0.49 K/uL (0.00-0.45); EOSINOPHILS PERCENT AUTO 6.4 % (0.0-6.0); HEMATOCRIT 42.3 % (37.0-47.0); HEMOGLOBIN 14.1 g/dL (12.0-16.0); IMMATURE GRAN ABSOLUTE AUTO 0.02 K/uL (0.00-0.05); IMMATURE GRAN PERCENT AUTO 0.3 % (0.0-0.4); LYMPHOCYTES ABSOLUTE AUTO 2.97 K/uL (1.00-4.80); LYMPHOCYTES PERCENT AUTO 38.6 % (24.0-44.0); MEAN CORPUSCULAR HGB CONC 33.3 g/dL (32.0-36.0); MEAN PLATELET VOLUME 9.1 fL (9.4-12.3); MONOCYTES ABSOLUTE AUTO 0.47 K/uL (0.00-0.80); MONOCYTES PERCENT AUTO 6.1 % (0.0-8.0); NEUTROPHILS ABSOLUTE AUTO 3.64 K/uL (1.80-7.70); NEUTROPHILS PERCENT AUTO 47.3 % (41.0-71.0); PLATELET COUNT,PLT 381 K/uL (150-400); WHITE BLOOD CELL COUNT,WBC 7.69 K/uL (3.9-11.3)
[2024-08-24 13:58] LABS: A/G RATIO 1.1 (0.9-1.6); ALANINE AMINOTRANSFERASE,ALT 47 IU/L (14-63); ALBUMIN 3.6 g/dL (3.4-5.0); ALKALINE PHOSPHATASE 74 U/L (46-116); ASPARTATE AMNIOTRANSFERASE,AST 20 IU/L (15-37); BILIRUBIN TOTAL 0.4 mg/dL (0.2-1.0); BLOOD UREA NITROGEN,BUN 14 mg/dL (7.0-18.0); CALCIUM 9.3 mg/dL (8.5-10.1); CARBON DIOXIDE,CO2 28.1 mmol/L (21.0-32.0); CHLORIDE,CL 99 mmol/L (98-107); CREATININE 0.8 mg/dL (0.6-1.0); EST CRCL DRUG DOSING (CG) 83.04 mL/min; GLUCOSE RANDOM 99 mg/dL (74-106); POTASSIUM,K 4.5 mmol/L (3.5-5.1); PRO B-TYPE NATRIUR PEPT,BNPPRO 63 pg/mL (0-125); SODIUM,NA 137 mmol/L (136-145)
[2024-08-24 13:59] LABS: ESTIMATED GFR 87 mL/min (>60)
[2024-08-24 14:03] LABS: T3 FREE 2.53 pg/mL (2.18-3.98); T4 FREE 1.1 ng/dL (0.76-1.46); TSH ULTRASENSITIVE 0.87 uIU/mL (0.36-3.74)
[2024-08-24] MEDS: Iopamidol 755 MG/ML 500 ML Multipack Bottle IVPUSH STA (16:38)
[2024-08-24 16:49] VITALS: BP 113/88; PULSE 88
== END 2024-08-24 16:49 | disposition home or self-care (01) ==
LOC: MW.ED 11:42
DX: R06.02 Shortness of breath (principal); R79.1 Abnormal coagulation profile; E66.9 Obesity, unspecified; Z68.27 Body mass index [BMI] 27.0-27.9, adult; Z90.89 Acquired absence of other organs; Z86.16 Personal history of COVID-19; Z90.49 Acquired absence of other specified parts of digestive tract; Z90.710 Acquired absence of both cervix and uterus; Z79.890 Hormone replacement therapy; Z79.899 Other long term (current) drug therapy; Z75.8 Other problems related to medical facilities and other health care
CPT/HCPCS: 36415; 71046; 71275; 80053; 83880; 84439; 84443; 84481; 84484; 85025; 85379; 93005; 99285; Q9967